=== PATIENT | male | born 1975 | race Caucasian/White ===

== ENCOUNTER → 2018-05-01 07:38 | Outpatient (CLI) | payer BC, SELFPAY ==
--- NOTE | 2018-05-01 08:00 | US_ITS ---
US abdomen limited History:Abdominal pain and belching Ordering Physician:Harmony Cook Patient Age: 43 years Comparison:None Findings: Pancreas:Unremarkable. No obvious mass or abnormal fluid collection. No ductal dilatation Liver:There is diffuse fatty liver with increased echogenicity of the liver and poor through transmission of sound. Right Kidney:Unremarkable. Normal size and echogenicity. No hydronephrosis Gallbladder:The gallbladder is distended at 11 x 4 cm. No obvious stones are present. Sludge is present in the gallbladder. Common bile duct is normal at 5 mm. No gallbladder wall thickening, pericholecystic fluid, or biliary dilatation. Impression: 1. Fatty liver. 2. Mildly distended gallbladder with sludge
== END ==
PROVIDERS: Family Provider Family Medicine; PCP Family Medicine; Visit Provider Nurse Practitioner
DX: R10.84 Generalized abdominal pain (principal)
CPT/HCPCS: 76705

== ENCOUNTER → 2018-05-24 10:08 | Outpatient (CLI) | payer BC, SELFPAY ==
--- NOTE | 2018-05-24 10:11 | NM_ITS ---
NM hepatobiliary w pharm HISTORY: Abdominal pain and belching ITS.REASON: SLUDGE IN GALLBLADDER ORDERING PHYSICIAN: Yvan Hammond MD PATIENT AGE: 43 years COMPARISON: None DOSE: 8.60 MCI TC Choletec Injected into RT arm Fatty Meal Ensure FINDINGS: Homogeneous activity is present within the hepatic parenchyma. Activity is present in the gallbladder by 40 minutes. Activity is present in the small bowel by 30 minutes. The gallbladder ejection fraction is calculated to be 47% The patient did not report pain or other symptoms during the fatty meal. IMPRESSION: Unremarkable hepatobiliary scan and gallbladder ejection fraction. No evidence of common or cystic duct obstruction with normal gallbladder ejection fraction
== END ==
PROVIDERS: PCP Family Medicine; Visit Provider Family Medicine
DX: K82.8 Other specified diseases of gallbladder (principal)
CPT/HCPCS: 78227; A9537

== ENCOUNTER → 2019-09-20 08:36 | Outpatient (CLI) | payer BC, SELFPAY | PROVIDERS: PCP Family Medicine; Visit Provider Family Medicine | DX: G47.33 Obstructive sleep apnea (adult) (pediatric) (principal); R40.0 Somnolence; E66.9 Obesity, unspecified | CPT/HCPCS: G0399 ==

== ENCOUNTER → 2021-07-14 16:07 | Outpatient (CLI) | payer BC, SELFPAY | PROVIDERS: PCP Family Medicine; Visit Provider Nurse Practitioner | DX: Z20.822 Contact with and (suspected) exposure to COVID-19 (principal) | CPT/HCPCS: C9803; U0003; U0005 ==

== ENCOUNTER → 2021-07-26 15:22 | Outpatient (CLI) | payer BC, SELFPAY | PROVIDERS: Visit Provider Nurse Practitioner | DX: Z20.822 Contact with and (suspected) exposure to COVID-19 (principal) | CPT/HCPCS: C9803; U0003; U0005 ==

== ENCOUNTER → 2021-08-04 15:27 | Outpatient (CLI) | payer BC, SELFPAY | PROVIDERS: PCP Family Medicine; Visit Provider Urology | DX: Z01.812 Encounter for preprocedural laboratory examination (principal); Z11.52 Encounter for screening for COVID-19; Z30.2 Encounter for sterilization | CPT/HCPCS: C9803; U0003; U0005 ==

== ENCOUNTER 2021-08-06 08:22 | Day surgery (SDC) | payer BC, SELFPAY ==
[2021-08-03 14:26] VITALS: BMI 39.4
[2021-08-06 08:44] VITALS: BP 151/88; PULSE 77; RESP 18; TEMP 36.4; O2SAT 98
[2021-08-06 10:24] VITALS: BP 144/85; PULSE 73; RESP 18; TEMP 36.6; O2SAT 95
[2021-08-06 10:37] VITALS: BP 144/85; PULSE 73; RESP 18; O2SAT 95
--- NOTE | 2021-08-06 13:08 | HMH.OPNOTE ---
Date of procedure: 08/06/21 Pre-op Diagnosis:: Sterilization Post-op Diagnosis:: Same Procedure performed:: Vasectomy Surgeon:: Dave Dow MD Anesthesia: local Estimated blood loss (mL): 5 Clinical Note:: 46-year-old white male presents for vasectomy. Office visit has been performed previously to discussed the operative procedure complications and postoperative course. Operative findings:: Scrotal and testicular examination within normal limits. Vasectomy was performed without difficulty. Operative note:: Patient taken to the vasectomy suite after informed consent was obtained. On the stretcher he was prepped and draped in the standard surgical fashion. Scrotal and testicular examination were within normal limits. The left vas was found and brought anteriorly and local anesthetic placed into the midline raphae and in and around the left vas. Incision was then made in the midline raphae and the left vas was grasped with a tenaculum. It was brought through the incision and the basal sheath was incised. The vas proper was dissected away from its surrounding tissues and 1 clip was placed distally and 2 clips proximally. A 1 cm segment of the vas was excised and the basal lumen was cauterized. Hemostasis achieved in the left vas dropped back into the left hemiscrotum. The right vas was then brought up through the same incision and local anesthetic placed around the right vas and the identical procedure was performed as on the left side. The right vas was dropped back into the hemiscrotum and hemostasis achieved. A 2-0 chromic placed into the skin and a horizontal mattress fashion. Compression dressing applied. Patient tolerated well. Condition: stable Disposition: same day Specimens:: Past segments were not sent to pathology Complications:: None
[2022-04-07 10:57] LABS: POC Glucose,Bedside 158 (70-110)
== END 2021-08-06 10:37 | disposition home or self-care (01) ==
LOC: OUTP 08:23
PROVIDERS: PCP Family Medicine; Visit Provider Urology
PROC: (CPT 55250; principal; 2021-08-06 09:30)
DX: Z30.2 Encounter for sterilization (principal)
CPT/HCPCS: 55250; 82962

== ENCOUNTER → 2021-09-18 10:24 | Outpatient (CLI) | payer BC, SELFPAY ==
[2021-09-18 10:50] LABS: Basophils # 0.3 K/mm3 (0-0.2); Basophils % 3.8 % (0.1-2.0); Eosinophils # 0.2 K/mm3 (0.0-0.4); Eosinophils % 2.6 % (0.1-12.0); Hematocrit 51.5 % (42.0-52.0); Lymphocytes # 1.6 K/mm3 (0.7-4.5); Lymphocytes % 18.8 % (10-50); Mean Corpuscular Hemoglobin 29.6 pg (27.0-31.2); Mean Corpuscular Volume 89.9 fl (80-94); Mean Platelet Volume 8.9 fl (7.4-10.4); Monocytes # 0.4 K/mm3 (0.1-1.0); Monocytes % 5.2 % (1.7-9.3); Neutrophils # 5.8 K/mm3 (1.8-7.8); Neutrophils % 69.7 % (37.0-80.0); Platelet Count 276 K/mm3 (142-424); Red Blood Count 5.73 M/mm3 (4.60-6.20); Red Cell Distribution Width 14.1 % (11.5-17.5); White Blood Count 8.4 K/mm3 (4.8-10.8)
[2021-09-18 11:28] LABS: Anion Gap 13.6 mEq/L (5-15); Blood Urea Nitrogen 15 mg/dl (9-20); Calcium 9.2 mg/dl (8.4-10.2); Carbon Dioxide 29 mmol/L (22.0-30.0); Chloride 102 mmol/L (98-107); Estimated Glomerular Filt Rate 90 ml/min (>60); GFR (African American) 109 ML/MIN (>60); Glucose 112 mg/dl (74-100); Potassium 4.6 mmoL/L (3.5-5.1); Sodium 140 mmol/L (136-145)
== END ==
PROVIDERS: Visit Provider Otolaryngology
DX: Z01.812 Encounter for preprocedural laboratory examination (principal); Z11.52 Encounter for screening for COVID-19
CPT/HCPCS: 36415; 80048; 85025; C9803; U0003; U0005

== ENCOUNTER 2021-09-21 07:35 | Day surgery (SDC) | payer BC, SELFPAY ==
[2021-09-16 14:27] VITALS: BMI 39.0
[2021-09-21 08:26] VITALS: BP 153/85; PULSE 75; RESP 18; TEMP 36.4; O2SAT 98
--- NOTE | 2021-09-21 08:26 | ECG_ITS ---
APPROVED REPORT Exam: Resting ECG HR:71 bpm ECG Measurements Heart Rate 71 AXES MT 184 P -8 QRSd 92 QRS 54 QT 371 T 13 QTc 393 Conclusion SINUS RHYTHM NORMAL ECG UNCONFIRMED REPORT Electronically signed by : Yvan Archer MD 09/21/2021 14:03:14
[2021-09-21 10:09] VITALS: BP 142/75; PULSE 65; RESP 18; TEMP 36.6; O2SAT 98
[2021-09-21 10:25] VITALS: BP 142/75; PULSE 65; RESP 18; TEMP 36.6; O2SAT 98
--- NOTE | 2021-09-21 10:30 | HMH.OPNOTE ---
Date of procedure: 09/21/21 Pre-op Diagnosis:: Nasal skin lesion Post-op Diagnosis:: Nasal skin lesion Procedure performed:: Excision nasal skin lesion with multilayer closure 7 mm Surgeon:: Catrachito Diaz MD Anesthesia: local Estimated blood loss (mL): 0 Operative findings:: 7 mm nasal skin lesion consistent with nonpigmented nevus Operative note:: Patient was brought to the operating room and placed supine and then the skin lesion on his nasal dorsum was locally infiltrated with 1% lidocaine with epinephrine then a planned horizontal's incision was designed and then the nose prepped and draped in the usual sterile fashion and then an elliptical excision performed down to the underlying subcutaneous tissue and the skin lesion was sent for permanent section analysis. Hemostasis was established with bipolar cautery and then the wound closed in 2 layers with 5-0 Vicryl and 6-0 nylon. A sterile dressing was applied and the procedure concluded. All counts correct and blood loss was 0 Condition: stable Disposition: PACU Complications:: none
--- NOTE | 2021-09-21 11:23 | HMH.OPNOTE ---
Date of procedure: 09/21/21 Pre-op Diagnosis:: Chronic serous otitis media ,nasopharynx mass Post-op Diagnosis:: Chronic serous otitis media, nasopharynx mass Procedure performed:: Bilateral tympanostomy and tube placement, adenoidectomy Surgeon:: Catrachito Diaz MD MIXING TANK OPERATOR:: Sam Nunn Anesthesia: GETA Estimated blood loss (mL): 25 Operative findings:: Mucoid middle ear effusion bilaterally, nasopharynx mass looked like benign adenoid hypertrophy Operative note:: The patient was brought to the operating room and after adequate general anesthesia the ears were draped in the usual sterile fashion and operating microscope employed to visualize tympanic membranes anterior inferior quadrant tympanostomies were made and suction employed to clear the middle ear space effusion and this was done bilaterally and then Zeng T tubes placed bilaterally and Ciprodex drops applied. The mouth was then draped in the usual sterile fashion and a McIvor mouthgag placed. The soft palate was inspected and no anatomic abnormalities were seen. The soft palate was retracted and the nasopharynx was visualized with a mirror. The soft tissue mass was consistent with adenoid hypertrophy. Adenoidectomy was performed using a microdebrider and then hemostasis established with suction Bovie and the procedure concluded. All counts correct and blood loss was less than 25 mL and patient was sent recovery in stable condition Condition: stable Disposition: PACU Complications:: none
[2022-04-07 10:57] LABS: POC Glucose,Bedside 119 (70-110)
== END 2021-09-21 10:25 | disposition home or self-care (01) ==
LOC: OR 07:37
PROVIDERS: PCP Family Medicine; Visit Provider Otolaryngology
PROC: (CPT 11106; principal; 2021-09-21 09:00)
DX: D23.39 Other benign neoplasm of skin of other parts of face (principal); E11.9 Type 2 diabetes mellitus without complications; Z79.890 Hormone replacement therapy; Z79.84 Long term (current) use of oral hypoglycemic drugs; Z79.4 Long term (current) use of insulin
CPT/HCPCS: 11106; 82962; 93005

== ENCOUNTER 2023-11-07 16:10 | Outpatient (CLI) | payer BC, SELFPAY ==
--- NOTE | 2023-11-07 16:14 | XR_ITS ---
FINAL REPORT CLINICAL HISTORY: Foot Pain FINDINGS: Three views show no evidence of acute displaced fracture or dislocation of the visualized bony architecture. The joint spaces appear normal. IMPRESSION: Unremarkable exam. Reviewed, Interpreted and Dictated by Morenita Garza MD Transcribed by Yarely Herrera Authenticated and . [facility]
--- NOTE | 2023-11-07 16:14 | XR_ITS ---
FINAL REPORT CLINICAL HISTORY: Foot Pain FINDINGS: Three views show no evidence of acute displaced fracture or dislocation of the visualized bony architecture. The joint spaces appear normal. IMPRESSION: Unremarkable exam. Reviewed, Interpreted and Dictated by Morenita Garza MD Transcribed by Yarely Herrera Authenticated and [facility]
== END 2023-11-07 23:59 | disposition home or self-care (01) ==
LOC: RAD 16:11
PROVIDERS: PCP Family Medicine; Visit Provider Podiatrist
DX: M79.671 Pain in right foot (principal); M79.672 Pain in left foot
CPT/HCPCS: 73630

== ENCOUNTER 2024-03-20 15:00 | Outpatient (RCR) | payer BC, SELFPAY ==
--- NOTE | 2024-02-09 12:41 | HMH.PTOPEV ---
PT Outpatient Evaluation Rehab PT Outpatient Evaluation Start: 02/09/24 12:24 Freq: Status: Active Protocol: Document 02/09/24 12:25 ANA PAULA (Rec: 02/09/24 12:41 ANA PAULA [id number]) E-signed By Jayden Love, PT Outpatient Therapy Subjective History Subjective History Patient is a 48 year old male presenting to outpatient PT with reports of R foot/ankle pain of insidious onset starting approx 7 months ago. Symptoms consistent with R PF /PTT/distal achilles tendonitis. Patient is currently using custom orthotics for B arch support. Comorbidities include hx of diabetes and umbilical hernia. New diagnosis of cancer in past 12 No months? Chief Complaint Pain,Stiff Symptom Type Dull,Shooting Symptoms Aggravated By Standing,Walking Prior Functional Limitations None Current Functional Limitations Housework,Walking,Stairs, Balance Symptom Description Intermittent Level of pain today (0-10) 3 Pain scale - at its worst (0-10) 9 Ankle/Foot Eval Gait Observation General Gait Pattern Observation Antalgic Gait,Decrease Stride Lngth (R) Palpation Tenderness right Ankle/Foot Palpation Findings Tenderness Ankle/Foot Palpation Overall Comment mid/distal posterior tibialis, distal achilles, calcaneus 3/ 4 ROM Ankle/Foot Dorsiflexion w/Knee Extended 12 Active Range Motion (degrees) Ankle/Foot Plantar Flexion Active Range WNL of Motion (degrees) Ankle/Foot Eversion Active Range of 22 Motion (degrees) Ankle/Foot Inversion Active Range of 29 Motion (degrees) Great Toe ROM Reason Not Measured Within Functional Limits Special Tests Talar Tilt Test Negative Right Foot Interdigital Neuroma Test Negative Right Neuro tests normal sensation to monofilament Yes Lower Extremity Functional Index Activities Today, do you or would you have any difficulty at all with: a.Any of your usual work, housework or Quite a bit of difficulty school activities b. Your usual hobbies, recreational or Moderate difficulty sporting activities c. Getting into or out of the bath No difficulty d. Walking between rooms No difficulty e. Putting on your shoes or socks No difficulty f. Squatting A little bit of difficulty g. Lifting an object, like a bag of No difficulty groceries from the floor h. Performing light activities around No difficulty your home i. Performing heavy activities around No difficulty your home j. Getting into or out of a car A little bit of difficulty k. Walking 2 blocks No difficulty l. Walking a mile Moderate difficulty m. Going up or down 10 stairs (about 1 Quite a bit of difficulty flight of stairs) n. Standing for 1 hour No difficulty o. Sitting for 1 hour Moderate difficulty p. Running on even ground Extreme difficulty or unable to perform activity q. Running on uneven ground Extreme difficulty or unable to perform activity r. Making sharp turns while running fast Extreme difficulty or unable to perform activity s. Hopping Extreme difficulty or unable to perform activity t. Rolling over in bed No difficulty LEFI Score Lower Extremity Functional Index Score 50 Outpatient Therapy Assessment Impairments Problems/Impairmments Palpation Tenderness,Impaired Range of Motion,Impaired Gait Pattern,Impaired Walking, Impaired Standing,Impaired Household Care,Impaired Stair Climbing,Impaired Incline Stepping,Impaired Recreational Activities,Impaired Work Activities,Subjective C/O Pain Prognosis Rehab Potential Good Clinical Impression Consistent with Diagnosis Yes Short Term Goals Number of Weeks 2 Decrease Subjective C/O Pain Yes: 11/16 at worst Patient to be Ind w/ HEP Yes Shoe Sprayer Goals Number of Weeks 4-6 Decreased Palpation Tenderness Yes: 07/13 Increase Range of Motion Yes: WNL all planes Increase Ability to Walk Yes: 1 hr without difficulty Increase Ability to Stand Yes: Improve Ability For Household Care Yes Improve Ability to Climb Stairs Yes: 1 flight up/down without difficulty Improve Tolerance to Work Activities Yes Decrease Subjective C/O Pain Yes: 08/19 at worst Outpatient Therapy Plan of Care Treatment Plan May Include Therapeutic Exercise Including Home Yes Exercise Program Manual Therapy Techniques Yes Neuromuscular Re-education Yes Therapeutic Activities to Return to Yes Previous Functional/Work Level Gait Training Yes ADL/Self Care Education Yes Mechanical Traction Yes Dry Needling Yes Thermal Modalities Yes Electrical Stimulation Yes Ultrasound/Phonophoresis Yes Iontophoresis Yes Orthotics/Bracing/Splinting Yes Vasopneumatic Compression Pump Yes Massage Yes Eval/Re-Eval Yes Frequency Times per week 2 Duration Number of Weeks 4-6 Addendums This patient is a candidate for social No or vocational rehab? Patient/Guardian verbally acknowledges Yes understanding of treatment program and consents to further treatment? Patient/Guardian verbally acknowledges Yes understanding of diagnosis, prognosis and goals for treatment? Eval Complexity PT Charges 18714 - Moderate Complexity Shoulder/Elbow Eval Shoulder Objective Measurements Elbow Objective Measurements PHYSICIAN CERTIFICATION: I certify the specified therapy services for Eliecer Felix are required, authorized, and reviewed every 30 days.
--- NOTE | 2024-03-14 14:16 | HMH.RHREAS ---
Rehab Reassessment Rehab OP Re-assessment Start: 02/09/24 12:24 Freq: Status: Active Protocol: Document 03/14/24 13:46 ANA PAULA (Rec: 03/14/24 14:16 ANA PAULA [id number]) E-signed By Jayden Love PT Lower Extremity Functional Index Activities Today, do you or would you have any difficulty at all with: a.Any of your usual work, housework or A little bit of difficulty school activities b. Your usual hobbies, recreational or A little bit of difficulty sporting activities c. Getting into or out of the bath No difficulty d. Walking between rooms No difficulty e. Putting on your shoes or socks No difficulty f. Squatting No difficulty g. Lifting an object, like a bag of No difficulty groceries from the floor h. Performing light activities around No difficulty your home i. Performing heavy activities around A little bit of difficulty your home j. Getting into or out of a car No difficulty k. Walking 2 blocks Moderate difficulty l. Walking a mile Moderate difficulty m. Going up or down 10 stairs (about 1 No difficulty flight of stairs) n. Standing for 1 hour A little bit of difficulty o. Sitting for 1 hour No difficulty p. Running on even ground Moderate difficulty q. Running on uneven ground Moderate difficulty r. Making sharp turns while running fast Moderate difficulty s. Hopping Moderate difficulty t. Rolling over in bed No difficulty LEFI Score Lower Extremity Functional Index Score 64 Rehab Re-assessment Subjective Subjective Patient reports 60% improvement since start of care. Objective Objective Notes AROM: WFL MMT: WFL Neuro: WFL Pain: 1/10 currently; 2/10 at worst TTP: calcaneal tubercle 1/4 Assessment Progress Assessment Progressing as Expected Assessment Notes Patient continues to experience functional limitations with prolonged standing/ambulatory activities . AROM and MMT WNL as noted. Patient goals met STG's Goals Not Met LTG's Revised Goals NA Plan Plan Continue with current POC. Frequency of Therapy 2x/week Duration of therapy 4 weeks Time and Billing Re-Eval Time 14 Re-Eval Billing Units 1 PHYSICIAN CERTIFICATION: I certify the specified therapy services for Eliecer Felix are required, authorized, and reviewed every 30 days.
== END 2024-03-20 15:05 | disposition home or self-care (01) ==
LOC: PT 15:00
PROVIDERS: Visit Provider Podiatrist
DX: M72.2 Plantar fascial fibromatosis (principal)
CPT/HCPCS: 97014; 97033; 97035; 97110; 97140; 97163; 97164; 97530; G0283

== ENCOUNTER 2024-07-31 14:03 | Outpatient (POV) | payer BC, SELFPAY ==
[2024-07-31 15:23] VITALS: BP 150/84; PULSE 80; RESP 18; O2SAT 98; BMI 40.4
--- NOTE | 2024-07-31 15:23 | A.OFFVIS_ITS ---
HPI Data of Consult Patient: new to practice Consult date: 07/31/24 Requesting Physician: Kassandra Rivera APRN Primary Care Provider: Yvan Hammond MD Consult Narrative Reason for consult: Neck pain History of present illness: Mr. Felix is a 49 year old male who presents today as a new patient. He is a referral from Dr. Ramirez's office. Today he rates his pain a 7 out of 10. Patient states that he has been experiencing chronic neck pain for longer than 6 months unrelated to any specific injury or trauma. Patient states that he does work at [employer] and that that may be playing a role in some of his worsening pain. He describes it as a throbbing sensation that is constant. He states that he has a lot of difficulty turning his head [id number] or up and down. He does state when he turns his head he feels a buzzing shocklike sensation that will occasionally send shooting pain into his right shoulder. He also does make mention that he has chronic headaches due to this. He has tried oral medications such as Tylenol and ibuprofen along with heat and ice and topicals with minimal improvement. Patient does state that Dr. Ramirez was not recommending cervical intervention at this time however was recommending injection therapy to see about additional improvement. Patient denies any prior back surgery or injection history such as epidurals or medial branch blocks. He does state that he did have an orthopedic doctor give him an injection and it did help some. He states that he has started physical therapy however has not really seen improvement just yet. His Fidencio has been reviewed and is appropriate. CC: Kassandra Rivera APRN [facility] Disclaimer: The information contained in this section may have been updated after the patient was seen, as this information can be updated by other users. 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 [employer] current occupational exposures/hazards: No caffeine: Yes Have you lived/traveled outside [place] in past 30 days?: No Contact w/someone who lives/traveled outside US past 30 days?: No Exposure to someone with infectious disease in past 14 days?: No Do you have a fever (greater than 100.4 F or 38 C)?: No Have you tested positive for COVID-19: No Exposed to someone with COVID-19 in past 14 days?: No Do you have a sore throat?: No Do you have a cough?: No Do you have any weakness?: No Do you have any diarrhea?: No Are you experiencing any unusual bleeding?: No Do you have any muscle aches/pain?: No Do you have any abdominal pain?: No Are you experiencing loss of taste or smell?: No Review of Systems Review of Systems Review of systems:: pertinent systems reviewed and negative unless documented below Review of systems (narrative): Review of Systems: General: No recent weight changes, no fever, no sleep disturbances Respiratory: No cough, no shortness of air, no recurring pulmonary infections Cardiovascular/peripheral vascular: No chest pain, no palpitations, no edema, no shortness of breath Gastrointestinal: No new onset incontinence, normal bowel movements reported Genitourinary: No new onset incontinence Musculoskeletal: Neck pain Psychiatric: [Normal mood/affect] Neurological: [Denies weakness in extremities], [denies balance issues] Meds Home Medications and Allergies Home Medications ?Medication ?Instructions ?Recorded ?Confirmed ?Type omeprazole 40 mg capsule,delayed 40 mg PO DAILY Reflux/Acid reflux 04/06/21 07/23/24 History release diclofenac sodium 1 % topical gel 4 g topical QID PRN pain 30 days 11/07/23 07/23/24 Rx (Voltaren Arthritis Pain) #100 grams testosterone cypionate 200 mg/mL mg SQ 11/07/23 07/23/24 History intramuscular oil sertraline 50 mg tablet mg PO DAILY 12/05/23 07/23/24 History tamsulosin 0.4 mg capsule mg PO 12/05/23 07/23/24 History tirzepatide 5 mg/0.5 mL mg SQ 05/21/24 07/23/24 History subcutaneous pen injector (Janet) meloxicam 7.5 mg tablet See Rx Instructions .Route 07/23/24 07/23/24 Rx .COMPLEX #30 tabs New Prescriptions to Start Prescriptions: Allergies Allergy/AdvReac Type Severity Reaction Status Date / Time No Known Allergies Allergy Verified 07/23/24 13:46 Objective Narrative: Physical Exam: General: Alert and oriented x3, no acute distress, pleasant and cooperative Lungs: Respirations even and unlabored, symmetrical chest expansion Eyes: PERRL Musculoskeletal: Flexion and extension of cervical [spine] somewhat guarded secondary to pain, [antalgic gait noted] positive Kemps test Neurological: Speech clear, no gross sensory deficit Additional findings Additional findings: MRI without contrast of cervical spine June 26, 2024 Impression: Degenerative changes of the cervical spine as detailed above level by level. Several disc osteophyte complex formation is contributing to canal and foraminal narrowing. There are degenerative endplate changes which have a chronic appearance with questionable remote fracture deformity of the inferior endplate of C6. There is acute bone edema along the inferior endplate of C5 and superior endplate of C6 suggest ongoing bony endplate remodeling/microtrabecular type fracture and component. Correlation with prior injury is recommended. Correlation with any prior imaging is also recommended if available. Assessment and Plan *Assessment and plan (1) Cervical spondylosis: Status: Acute Category: Medical Code(s): M47.812 - Spondylosis without myelopathy or radiculopathy, cervical region (2) Neck pain: Status: Acute Category: Medical Code(s): M54.2 - Cervicalgia (3) Degenerative disc disease, cervical: Status: Acute Category: Medical Code(s): M50.30 - Other cervical disc degeneration, unspecified cervical region Plan Patient is experiencing worsening pain in his neck with very limited range of motion. Patient did have a positive Kemps test. I did discuss with the patient that I do believe he would benefit from a cervical medial branch block. Risk and benefits were discussed with the patient and he would like to proceed forward with this plan of care. Patient has tried and failed conservative therapy including oral medications, heat and ice, topicals, at home stretching exercise for longer than 12 weeks and is now in physical therapy with no additional changes as of yet. Patient will be ordered a compounded cream. Patient will be scheduled for his first diagnostic cervical medial branch block bilaterally C5-C6 and C6-C7 under fluoroscopy. If he does have significant relief we will proceed forward with a second diagnostic injection with the plan to proceed to the cervical RFA at a later date. Patient agrees with this plan of care. Patient has been instructed to contact the clinic with any concerns before the next appointment. Dr. Landis has reviewed this note and agrees with this plan of care. This note was dictated using voice recognition software and make contain errors or omissions. All injections are used with Lidocaine, Bupivacaine and Depo Medrol. Occasionally urine drug screen is needed to verify patient's compliance with our office pain contract. This is ordered based off specific treatments related to chronic pain with the potential to abuse certain medications.
== END 2024-07-31 23:59 | disposition home or self-care (01) ==
LOC: SC.PAIN 14:04
PROVIDERS: PCP Family Medicine; Visit Provider Nurse Practitioner Family
DX: M47.812 Spondylosis without myelopathy or radiculopathy, cervical region (principal); M50.30 Other cervical disc degeneration, unspecified cervical region; Z87.891 Personal history of nicotine dependence
CPT/HCPCS: 99212; G0463

== ENCOUNTER 2024-07-31 15:08 | Outpatient (CLI) | payer BC, SELFPAY ==
--- NOTE | 2024-07-31 15:08 | MR_ITS ---
PROCEDURE INFORMATION: Exam: MR Right Lower Extremity Joint Without Contrast; Ankle Exam date and time: 07/31/2024 3:55 PM Age: 49 years old Clinical indication: Pain; Ankle; Right; Additional info: Evaluate achilles/plantar fascia TECHNIQUE: Imaging protocol: Magnetic resonance imaging of the right lower extremity without contrast. Exam focused on the ankle. COMPARISON: CR XR FOOT WT BEARING RT 3V 11/07/2023 4:15 PM FINDINGS: Bones/joints: Unremarkable. No bone abnormalities. Articular cartilage is normal. No joint effusion. LIGAMENTS: Distal tibiofibular syndesmosis: Unremarkable. No tear. Anterior talofibular ligament: Unremarkable. No tear. Posterior talofibular ligament: Unremarkable. No tear. Calcaneofibular ligament: Unremarkable. No tear. Deltoid ligament complex: Unremarkable. No tear. TENDONS: Flexor tendons of foot: Unremarkable as visualized. Tibialis posterior tendon: Unremarkable as visualized. Peroneal tendons: Unremarkable as visualized. Extensor tendons of foot: Unremarkable as visualized. Tibialis anterior tendon: Unremarkable as visualized. Achilles tendon: Mildly increased T2 signal near the Achilles insertion with a small volume of adjacent fluid (image 38 series 9). Tarsal canal (Sinus tarsi): There is fluid within the sinus tarsus which may reflect an element of sinus tarsi syndrome. Tarsal tunnel: Unremarkable. Soft tissues: Unremarkable. Plantar fascia: There is mild thickening at the calcaneal attachment of the plantar fascia (image 19 series 6) which may reflect an element of plantar fasciitis. IMPRESSION: 1. 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 2. Thickening near the calcaneal attachment of the plantar fascia concerning for mild plantar fasciitis. 3. Increased fluid near the calcaneal insertion of the Achilles without significant tendon thickening or evidence for tear.
== END 2024-07-31 23:59 | disposition home or self-care (01) ==
LOC: RAD 15:08
PROVIDERS: PCP Family Medicine; Visit Provider Podiatrist
DX: M76.61 Achilles tendinitis, right leg (principal); M79.671 Pain in right foot; M72.2 Plantar fascial fibromatosis
CPT/HCPCS: 73721

== ENCOUNTER 2024-08-08 15:00 | Outpatient (RCR) | payer BC, SELFPAY | END 2024-08-08 23:59 | disposition home or self-care (01) | LOC: PT 15:00 | PROVIDERS: PCP Family Medicine; Visit Provider Neurological Surgery | DX: M54.12 Radiculopathy, cervical region (principal) | CPT/HCPCS: 97014; 97035; 97110; 97140; 97163; G0283 ==

== ENCOUNTER 2024-08-13 12:54 | Day surgery (SDC) | payer BC, SELFPAY ==
[2024-08-13 13:23] VITALS: BP 138/74; PULSE 76; RESP 16; O2SAT 97; BMI 40.0
[2024-08-13] MEDS: BUPIVACAINE 0.25% 10ML INJ 25 MG IJ (13:31)
[2024-08-13] MEDS: methylPREDNISolone ACETATE 80MG/ML VIAL 80 MG (13:31)
[2024-08-13] MEDS: LIDOCAINE 1% 5ML PF VIAL 5 ML (13:31)
[2024-08-13 13:32] VITALS: BP 129/80; PULSE 79; PULSE 81; RESP 18; O2SAT 96; O2SAT 98
--- NOTE | 2024-08-13 13:41 | P.PCN_ITS ---
Procedure Date: 08/13/24 Time: 13:30 Anesthesiologist:: Lisandro Herrera CRNA Complications:: None Pre-procedure Diagnosis:: Degenerative disc cervical spine multilevels. Cervical radiculopathy. Cervical spondylosis. Multilevel cervical facet arthropathy Post-procedure Diagnosis:: Same. Indications for Procedure:: Patient is a pleasant 49-year-old male who comes our clinic today for ROUND ONE of cervical medial branch blocks/facet injections bilateral C5-6, C6-7 level. Patient describes cervical neck pain as constant, dull, aching. Chronic headaches. Some radicular symptoms in the bilateral shoulders. He rates his pain 7/10. Procedure Details:: Informed consent was obtained and the risk and benefits of the procedure was explained to the patient. Patient was taken to the procedure room where noninvasive monitors were placed, including noninvasive blood pressure cuff as well as pulse oximeter. The area over the posterior cervical spine was cleansed using chlorhexidine as a cleansing solution. I anesthetized the skin and sub cutaneous tissues with 1% Lidocaine. I placed 25 -gauge spinal needles into the facet joint/ medial branches of C5-6, C6-7 bilaterally. Needle placement was confirmed with fluoroscopy. After confirmation of needle placement, each site was injected with 1 mL of 1% lidocaine and 0.25 % Marcaine and 10 mg of Depo- Medrol. A total of 20 mg of depo medrol was used for bilateral medial branch blocks of C5-6, C6-7 bilaterally. Patient tolerated the procedure without difficulty. There were no complications. Plan and Disposition:: Patient was discharged without incident.
[2024-08-13 13:45] VITALS: BP 130/80; PULSE 69; RESP 16; TEMP 36.6; O2SAT 99
--- NOTE | 2024-08-13 13:53 | P.PCN_ITS ---
Procedure Date: 08/13/24 Time: 13:45 Anesthesiologist:: Lisandro Herrera CRNA Complications:: None Pre-procedure Diagnosis:: Bilateral sacroiliitis, degenerative disc lumbar spine multilevels. Lumbar radiculopathy. Chronic low lumbar back pain. Posterior hip pain. Post-procedure Diagnosis:: Same Indications for Procedure:: Patient is a pleasant 49-year-old male who comes our clinic today for repeat sacroiliac joint injections of cortisone and local anesthetic.. Patient reports 90+ percent relief with his previous injections in the bilateral sacroiliac joints. Patient has also had several lumbar epidural steroid injections with some moderate relief in terms of his radicular symptoms. He rates his pain today 6/10. Procedure Details:: Procedure: Bilateral sacroiliac joint injections under fluoroscopy Informed consent was obtained and the risks and benefits of the procedure were explained to the patient.~ The patient was taken to the procedure room and noninvasive monitors were placed including a noninvasive blood pressure cuff and pulse oximeter.~ The patient was placed prone on the procedure table. Both hips were cleansed using Betadine as a cleansing solution. C-arm fluoroscopy was used to view the right sacroiliac joint.~ The skin and subcutaneous tissues were anesthetized using lidocaine 1.5% and a 25-gauge needle.~ After this, a 22-gauge spinal needle was inserted under fluoroscopic guidance into the inferior aspect of the right sacroiliac joint.~ Omnipaque dye was injected and good spread was seen throughout the joint.~ After this, approximately 5 mL of bupivacaine, 0.25% and Depo-Medrol, 40 mg was incrementally injected into the right sacroiliac joint. We then moved to the left sacroiliac joint.~ The skin and subcutaneous tissues were anesthetized using lidocaine 1.5% and a 25-gauge needle.~ After this, a 22- gauge spinal needle was inserted under fluoroscopic guidance into the inferior aspect of the left sacroiliac joint.~ Omnipaque dye was injected and good spread was seen throughout the joint. After this, approximately 5 mL of bupivacaine, 0.25% and Depo-Medrol, 40 mg was incrementally injected into the left sacroiliac joint.~ The patient tolerated the procedure well with no complications. The patient was observed in the Pain Clinic and then was discharged home neurologically intact. Plan and Disposition:: Patient was discharged without incident.
[2024-08-13] MEDS: IOPAMIDOL-200 (41%);10ML VIAL 5 ML IV (14:10)
== END 2024-08-13 13:45 | disposition home or self-care (01) ==
PROVIDERS: PCP Family Medicine; Visit Provider Nurse Anesthetist, Certified Registered
DX: M47.812 Spondylosis without myelopathy or radiculopathy, cervical region (principal); M50.30 Other cervical disc degeneration, unspecified cervical region; M46.1 Sacroiliitis, not elsewhere classified; M51.362 Other intervertebral disc degeneration, lumbar region with discogenic back pain and lower extremity pain; M25.559 Pain in unspecified hip; M54.50 Low back pain, unspecified; G89.29 Other chronic pain
CPT/HCPCS: 27096; 64490; 64491; G0260; J1010; Q9966

== ENCOUNTER 2024-08-29 08:53 | Outpatient (POV) | payer BC, SELFPAY ==
[2024-08-29 09:44] VITALS: BP 141/79; PULSE 76; RESP 18; O2SAT 97; BMI 39.7
--- NOTE | 2024-08-29 09:59 | EXP.PAIN.SOA ---
[facility] Disclaimer: The information contained in this section may have been updated after the patient was seen, as this information can be updated by other users. 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 Today he rates his pain a 5 out of 10. He denies any new trauma or injury. He does state that he had approximately 80% relief that did last at least 36 hours with no migraines and no headaches. He does state that it did take about a day before it eventually kick 10 following the injections itself. He does state that he feels like it is still helping some however is writing today more about 30% improvement. He states that instead of having migraines daily he has gone to about 2 a week. Patient does state he still has very limited range of motion in his neck and would like to proceed forward on the next step that we discussed at his last appointment. He was prescribed the compounded cream and states he does feel like that helps additionally. Patient states his insurance did not cover the lidocaine patches. His Fidencio has been reviewed and is appropriate. Review of Systems: General: No recent weight changes, no fever, no sleep disturbances Respiratory: No cough, no shortness of air, no recurring pulmonary infections Cardiovascular/peripheral vascular: No chest pain, no palpitations, no edema, no shortness of breath Gastrointestinal: No new onset incontinence, normal bowel movements reported Genitourinary: No new onset incontinence Musculoskeletal: Neck pain, headaches Psychiatric: [Normal mood/affect] Neurological: [Denies weakness in extremities], [denies balance issues] Pain at rest (0-10 scale): 5 Objective Objective:: Physical Exam: General: Alert and oriented x3, no acute distress, pleasant and cooperative Lungs: Respirations even and unlabored, symmetrical chest expansion Eyes: PERRL Musculoskeletal: Flexion and extension of cervical [spine] somewhat guarded secondary to pain, [antalgic gait noted] positive Kemps test Neurological: Speech clear, no gross sensory deficit Has patient had previous pain injection?: Yes Percent improvement in pain since last injection: 80% Conservative treatment options previously tried: Home exercise plan Length of treatment: Longer than 12 weeks Meds Home Medications and Allergies Home Medications ?Medication ?Instructions ?Recorded ?Confirmed ?Type omeprazole 40 mg capsule,delayed 40 mg PO DAILY Reflux/Acid reflux 04/06/21 08/29/24 History release diclofenac sodium 1 % topical gel 4 g topical QID PRN pain 30 days 11/07/23 08/29/24 Rx (Voltaren Arthritis Pain) #100 grams testosterone cypionate 200 mg/mL 200 mg SQ DIRECTED SUPPLIMENT 11/07/23 08/29/24 History intramuscular oil sertraline 50 mg tablet 50 mg PO DAILY MOOD 12/05/23 08/29/24 History tamsulosin 0.4 mg capsule 0.4 mg PO DAILY URINATION 12/05/23 08/29/24 History tirzepatide 5 mg/0.5 mL 5 mg SQ DIRECTED 05/21/24 08/29/24 History subcutaneous pen injector (Mounjaro) meloxicam 7.5 mg tablet See Rx Instructions .Route 07/23/24 08/29/24 Rx .COMPLEX #30 tabs lidocaine 5 % topical patch 1 patch topical DAILY #30 ea 08/16/24 08/29/24 Rx New Prescriptions to Start Prescriptions: Allergies Allergy/AdvReac Type Severity Reaction Status Date / Time No Known Allergies Allergy Verified 08/05/24 14:08 Assessment and Plan *Assessment and plan (1) Neck pain: Status: Acute Category: Medical Code(s): M54.2 - Cervicalgia (2) Cervical spondylosis: Status: Acute Category: Medical Code(s): M47.812 - Spondylosis without myelopathy or radiculopathy, cervical region (3) Degenerative disc disease, cervical: Status: Acute Category: Medical Code(s): M50.30 - Other cervical disc degeneration, unspecified cervical region Plan Patient did have a successful first cervical medial branch block and I did review with him regarding repeat diagnostic block. Risk and benefits were discussed with patient and he would like to proceed forward with this plan of care. Patient did have limited range of motion of his cervical spine during today's visit with a positive Kemps test. Patient was counseled if he does get significant improvement with his second diagnostic block we will proceed forward with the cervical RFA at a later date. Patient was counseled to to the location of the RFA that we would do 1 side at a time because it is frequently more painful in the neck region. Patient acknowledges understanding agrees with plan of care. Patient has continued at home stretching and exercise for longer than 12 weeks with no additional changes. Patient has also been evaluated by neurosurgery and was not a candidate for surgical intervention at that time. Patient has failed oral medications, heat and ice, topicals. We will schedule him for his second cervical medial branch block bilaterally C5-C6 and C6 or C7 under fluoroscopy. Patient is not on any blood thinners. Patient has been instructed to contact the clinic with any concerns before the next appointment. Dr. Landis has reviewed this note and agrees with this plan of care. This note was dictated using voice recognition software and make contain errors or omissions. All injections are used with Lidocaine, Bupivacaine and Depo Medrol. Occasionally urine drug screen is needed to verify patient's compliance with our office pain contract. This is ordered based off specific treatments related to chronic pain with the potential to abuse certain medications.
== END 2024-08-29 23:59 | disposition home or self-care (01) ==
LOC: SC.PAIN 08:54
PROVIDERS: PCP Family Medicine; Visit Provider Nurse Practitioner Family
DX: M47.812 Spondylosis without myelopathy or radiculopathy, cervical region (principal); M50.30 Other cervical disc degeneration, unspecified cervical region; Z87.891 Personal history of nicotine dependence
CPT/HCPCS: 99212; G0463

== ENCOUNTER 2024-09-06 15:00 | Outpatient (RCR) | payer BC, SELFPAY | END 2024-09-06 23:59 | disposition home or self-care (01) | LOC: PT 15:00 | PROVIDERS: PCP Family Medicine; Visit Provider Neurological Surgery | DX: M54.12 Radiculopathy, cervical region (principal) | CPT/HCPCS: 97014; 97035; 97110; G0283 ==

== ENCOUNTER 2024-09-24 11:40 | Day surgery (SDC) | payer BC, SELFPAY ==
[2024-09-24 11:47] VITALS: BP 158/89; PULSE 69; RESP 16; TEMP 37; O2SAT 96; BMI 39.0
[2024-09-24 12:19] VITALS: BP 144/79; PULSE 71; RESP 16; O2SAT 95
[2024-09-24] MEDS: IOPAMIDOL-200 (41%);10ML VIAL 5 ML IV (12:28)
[2024-09-24] MEDS: methylPREDNISolone ACETATE 80MG/ML VIAL 80 MG (12:51)
[2024-09-24] MEDS: BUPIVACAINE 0.25% 10ML INJ 25 MG IJ (12:52)
[2024-09-24] MEDS: LIDOCAINE 1% 5ML PF VIAL 5 ML (12:52)
[2024-09-24 12:54] VITALS: BP 122/74; PULSE 76; RESP 18; O2SAT 94
[2024-09-24 12:55] VITALS: BP 122/74; PULSE 76; RESP 18; O2SAT 94
--- NOTE | 2024-09-24 13:01 | P.PCN_ITS ---
Procedure Date: 09/24/24 Time: 11:40 Anesthesiologist:: Lisandro Herrera CRNA Complications:: None Pre-procedure Diagnosis:: Degenerative disc cervical spine multilevels. Cervical radiculopathy. Cervical facet arthropathy. Cervical spondylosis. Post-procedure Diagnosis:: Same. Indications for Procedure:: Patient is a very pleasant 49-year-old male who comes our clinic today for ROUND TWO of cervical medial branch blocks/facet injections at the bilateral C5-6, C6- 7 levels. Patient reports posterior cervical neck pain is constant, dull, aching. Patient reports intermittent headaches. Patient reports pain with cervical flexion, extension, left and right rotation. He reports responding very well to cervical medial branch blocks/facet injections same levels previously. He rates his pain today 10. Procedure Details:: Procedure Details:: Informed consent was obtained and the risk and benefits of the procedure was explained to the patient. Patient was taken to the procedure room where noninvasive monitors were placed, including noninvasive blood pressure cuff as well as pulse oximeter. The area over the posterior cervical spine was cleansed using chlorhexidine as a cleansing solution. I anesthetized the skin and subcutaneous tissues with 1% Lidocaine. I placed 25 -gauge spinal needles into the facet joint/ medial branches of C5-6, C6-7 bilaterally. Needle placement was confirmed with fluoroscopy. After confirmation of needle placement, each site was injected with 1 mL of 1% lidocaine and 0.25 % Marcaine and 10 mg of Depo- Medrol. A total of 20 mg of depo medrol was used for bilateral medial branch blocks of C5-6, C6-7 bilaterally. Patient tolerated the procedure without difficulty. There were no complications. Plan and Disposition:: Patient was discharged without incident.
== END 2024-09-24 12:19 | disposition home or self-care (01) ==
LOC: SC.PAINP 11:41
PROVIDERS: PCP Family Medicine; Visit Provider Nurse Anesthetist, Certified Registered
DX: M47.812 Spondylosis without myelopathy or radiculopathy, cervical region (principal); M50.30 Other cervical disc degeneration, unspecified cervical region
CPT/HCPCS: 64490; 64491; J1010; Q9966

== ENCOUNTER 2024-09-25 16:00 | Outpatient (RCR) | payer BC, SELFPAY | END 2024-09-25 23:59 | disposition home or self-care (01) | LOC: PT 16:00 | PROVIDERS: PCP Family Medicine; Visit Provider Family Medicine | DX: M54.12 Radiculopathy, cervical region (principal) | CPT/HCPCS: 97110; 97140 ==

== ENCOUNTER 2024-10-09 14:19 | Outpatient (POV) | payer BC, SELFPAY ==
--- NOTE | 2024-10-09 14:53 | EXP.PAIN.SOA ---
[facility] Disclaimer: The information contained in this section may have been updated after the patient was seen, as this information can be updated by other users. 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 Today he does rate his pain a 3 out of 10. He states the pain will get much worse as the day goes on or with increased activity. He does state that he had at least 80% improvement and felt like it worked wonderful for a good full week. He states that he noticed improvement in movement as well as headaches. He does however state that he is already starting to notice increased pain. He does state that the more movement he denies typically flares up the overall neck pain and does increase his headaches as well as migraines. He does state that just the other day he turned his head to the left side and immediately flared up the pain causing a severe migraine. Patient does state that he would like to proceed forward with the cervical radiofrequency ablation that we have already discussed. Patient has continued conservative treatment with no additional changes. Patient does state that he has now officially stopped his therapy because it was just making his symptoms worse. His Fidencio has been reviewed and is appropriate. Review of Systems: General: No recent weight changes, no fever, no sleep disturbances Respiratory: No cough, no shortness of air, no recurring pulmonary infections Cardiovascular/peripheral vascular: No chest pain, no palpitations, no edema, no shortness of breath Gastrointestinal: No new onset incontinence, normal bowel movements reported Genitourinary: No new onset incontinence Musculoskeletal: Neck pain Psychiatric: [Normal mood/affect] Neurological: [Denies weakness in extremities], [denies balance issues] Pain at rest (0-10 scale): 5 Objective Objective:: Physical Exam: General: Alert and oriented x3, no acute distress, pleasant and cooperative Lungs: Respirations even and unlabored, symmetrical chest expansion Eyes: PERRL Musculoskeletal: Flexion and extension of cervical [spine] somewhat guarded secondary to pain, positive Kemps test Neurological: Speech clear, no gross sensory deficit Has patient had previous pain injection?: Yes Percent improvement in pain since last injection: 80% Conservative treatment options previously tried: Home exercise plan Length of treatment: Longer than 12 weeks Meds Home Medications and Allergies Home Medications ?Medication ?Instructions ?Recorded ?Confirmed ?Type omeprazole 40 mg capsule,delayed 40 mg PO DAILY Reflux/Acid reflux 04/06/21 09/24/24 History release testosterone cypionate 200 mg/mL 200 mg SQ DIRECTED SUPPLIMENT 11/07/23 09/24/24 History intramuscular oil sertraline 50 mg tablet 50 mg PO DAILY MOOD 12/05/23 09/24/24 History tamsulosin 0.4 mg capsule 0.4 mg PO DAILY URINATION 12/05/23 09/24/24 History tirzepatide 5 mg/0.5 mL 5 mg SQ DIRECTED 05/21/24 09/24/24 History subcutaneous pen injector (Mounjaro) meloxicam 7.5 mg tablet See Rx Instructions .Route 07/23/24 09/24/24 Rx .COMPLEX #30 tabs lidocaine 5 % topical patch 1 patch topical DAILY #30 ea 08/16/24 09/24/24 Rx diclofenac sodium 1 % topical gel 4 g topical QID PRN pain 30 days 09/30/24 Rx (Voltaren Arthritis Pain) #100 grams New Prescriptions to Start Prescriptions: Allergies Allergy/AdvReac Type Severity Reaction Status Date / Time No Known Allergies Allergy Verified 08/05/24 14:08 Assessment and Plan *Assessment and plan (1) Cervical spondylosis: Status: Acute Category: Medical Code(s): M47.812 - Spondylosis without myelopathy or radiculopathy, cervical region (2) Neck pain: Status: Acute Category: Medical Code(s): M54.2 - Cervicalgia Plan Patient has had 2 successful cervical medial branch blocks bilaterally of C5-C6 and 6 through C7. Patient has had more than 80% relief with each of these injections however they did vary on how long they lasted with his second 1 providing more improvement for a full week. I did review over the risk and benefits of the cervical RFA and he would like to proceed forward with this plan of care. Patient has tried and failed conservative therapy including oral medication, heat and ice, topicals, physical therapy, at home stretching exercise for longer than 12 weeks that was physician guided. I did discuss with the patient due to the increased pain with the radiofrequency ablation at the neck that we will plan on doing 1 side at a time. Patient does have worse pain on the left side and we will start with this side initially and proceed forward with the right side in future. Patient agrees with this plan of care. He will be scheduled for a cervical radiofrequency ablation left-sided C5-C6 and C6 or C7 under fluoroscopy. Patient has been instructed to contact the clinic with any concerns before the next appointment. Dr. Landis has reviewed this note and agrees with this plan of care. This note was dictated using voice recognition software and make contain errors or omissions. All injections are used with Lidocaine, Bupivacaine and Depo Medrol. Occasionally urine drug screen is needed to verify patient's compliance with our office pain contract. This is ordered based off specific treatments related to chronic pain with the potential to abuse certain medications.
[2024-10-09 15:44] VITALS: BP 128/79; PULSE 80; RESP 16; O2SAT 97; BMI 39.0
== END 2024-10-09 23:59 | disposition home or self-care (01) ==
LOC: SC.PAIN 14:20
PROVIDERS: PCP Family Medicine; Visit Provider Nurse Practitioner Family
DX: M47.812 Spondylosis without myelopathy or radiculopathy, cervical region (principal); M54.2 Cervicalgia; Z87.891 Personal history of nicotine dependence
CPT/HCPCS: 99212; G0463

== ENCOUNTER 2024-11-11 14:14 | Outpatient (POV) | payer BC, SELFPAY ==
[2024-11-11 14:42] VITALS: BP 127/77; PULSE 72; RESP 14; O2SAT 98; BMI 38.6
--- NOTE | 2024-11-11 14:58 | EXP.PAIN.SOA ---
[facility] Disclaimer: The information contained in this section may have been updated after the patient was seen, as this information can be updated by other users. 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 Today he rates his pain an 8 out of 10. Patient denies any new trauma or injury. He does state that he is having much worse neck pain that is interfering with his ability perform ADLs. Patient does state it is still that same pain he has been having and that it is worse with certain movements related to looking [id number] or up and down. Patient does still state that the left side is worse than the right side. Patient has had 2 diagnostic cervical medial branch blocks with both of them providing 80% relief. Patient did however only got about 36 hours with his first injection and 1 week with his second. Patient states that he did get a denial letter mentioning the types of medications as well as the temperature for the ablation. Patient does state that he does want to proceed forward with the cervical ablation as the injections for the first improvement he has had for some time. Patient states that he is dealt with this for a long time and that it is very frustrating. Patient does state that he is frustrated with the denial today. He is prescribed compounded cream. His Fidencio has been reviewed and is appropriate. Review of Systems: General: No recent weight changes, no fever, no sleep disturbances Respiratory: No cough, no shortness of air, no recurring pulmonary infections Cardiovascular/peripheral vascular: No chest pain, no palpitations, no edema, no shortness of breath Gastrointestinal: No new onset incontinence, normal bowel movements reported Genitourinary: No new onset incontinence Musculoskeletal: Neck pain Psychiatric: [Normal mood/affect] Neurological: [Denies weakness in extremities], [denies balance issues] Pain at rest (0-10 scale): 8 Objective Objective:: Physical Exam: General: Alert and oriented x3, no acute distress, pleasant and cooperative Lungs: Respirations even and unlabored, symmetrical chest expansion Eyes: PERRL Musculoskeletal: Flexion and extension of cervical [spine] somewhat guarded secondary to pain, [antalgic gait noted] positive Kemps test Neurological: Speech clear, no gross sensory deficit Has patient had previous pain injection?: No Conservative treatment options previously tried: Home exercise plan Length of treatment: Longer than 12 weeks Meds Home Medications and Allergies Home Medications ?Medication ?Instructions ?Recorded ?Confirmed ?Type omeprazole 40 mg capsule,delayed 40 mg PO DAILY Reflux/Acid reflux 04/06/21 11/11/24 History release testosterone cypionate 200 mg/mL 200 mg SQ DIRECTED SUPPLIMENT 11/07/23 11/11/24 History intramuscular oil sertraline 50 mg tablet 50 mg PO DAILY MOOD 12/05/23 11/11/24 History tamsulosin 0.4 mg capsule 0.4 mg PO DAILY URINATION 12/05/23 11/11/24 History tirzepatide 5 mg/0.5 mL 5 mg SQ DIRECTED 05/21/24 11/11/24 History subcutaneous pen injector (Mounjaro) meloxicam 7.5 mg tablet See Rx Instructions .Route 07/23/24 11/11/24 Rx .COMPLEX #30 tabs lidocaine 5 % topical patch 1 patch topical DAILY #30 ea 08/16/24 11/11/24 Rx diclofenac sodium 1 % topical gel 4 g topical QID PRN pain 30 days 09/30/24 11/11/24 Rx (Voltaren Arthritis Pain) #100 grams New Prescriptions to Start Prescriptions: Allergies Allergy/AdvReac Type Severity Reaction Status Date / Time No Known Allergies Allergy Verified 08/05/24 14:08 Assessment and Plan *Assessment and plan (1) Degenerative disc disease, cervical: Status: Acute Category: Medical Code(s): M50.30 - Other cervical disc degeneration, unspecified cervical region (2) Neck pain: Status: Acute Category: Medical Code(s): M54.2 - Cervicalgia (3) Cervical spondylosis: Status: Acute Category: Medical Code(s): M47.812 - Spondylosis without myelopathy or radiculopathy, cervical region Plan Patient has had 2 cervical medial branch blocks with 80% relief with each of those however the frequency of how long they lasted varied. Patient did have 36 hours with the first 1 and had 100% resolution of headaches/migraine during that timeframe. Patient had with his second injection with 1 week improvement of 80% to where he had very minimal pain in his neck rating a 1 out of 10. Patient is now experiencing much worse pain in the same location as he has been seen in our office with the left side being worse. Patient has had a positive Kemps test and would be an appropriate patient for the cervical radiofrequency ablation. This would be a 80 degrees nonpulsed thermal ablation. Patient has had chronic neck pain for longer than 6 months and has tried and failed conservative therapy including oral medication, heat and ice, topicals, physical therapy and at home stretching exercise for longer than 12 weeks that was physician guided. Patient has already been counseled that due to the increased pain of the cervical ablation that we would do 1 side at a time and since his left side is the worst we would start left-sided C5-C6 and C6-C7. Patient acknowledges understanding and agrees with this plan of care. Patient has gotten significant improved function with overall decreased pain from the 2 previous cervical blocks. Patient does have multilevel cervical spondylosis shown on his last imaging. Patient will be resubmitted for the cervical left-sided C5-C6, C6-C7 radiofrequency ablation under fluoroscopy. Patient has been instructed to contact the clinic with any concerns before the next appointment. Dr. Landis has reviewed this note and agrees with this plan of care. This note was dictated using voice recognition software and make contain errors or omissions. All injections are used with Lidocaine, Bupivacaine and dexamethasone. Occasionally urine drug screen is needed to verify patient's compliance with our office pain contract. This is ordered based off specific treatments related to chronic pain with the potential to abuse certain medications.
== END 2024-11-11 23:59 | disposition home or self-care (01) ==
LOC: SC.PAIN 14:15
PROVIDERS: PCP Family Medicine; Visit Provider Nurse Practitioner Family
DX: M50.30 Other cervical disc degeneration, unspecified cervical region (principal); M47.812 Spondylosis without myelopathy or radiculopathy, cervical region; Z87.891 Personal history of nicotine dependence; Z73.89 Other problems related to life management difficulty
CPT/HCPCS: 99212; G0463

== ENCOUNTER 2024-11-19 09:55 | Day surgery (SDC) | payer BC, SELFPAY ==
[2024-11-19 10:10] VITALS: BP 124/76; PULSE 77; RESP 16; TEMP 36.8; O2SAT 100; BMI 38.3
[2024-11-19] MEDS: LIDOCAINE 1% 5ML PF VIAL 5 ML (10:21)
[2024-11-19] MEDS: BUPIVACAINE 0.25% 10ML INJ 25 MG IJ (10:21)
[2024-11-19] MEDS: DEXAMETHASONE 10MG/ML 1ML VIAL 10 MG (10:21)
[2024-11-19 10:22] VITALS: BP 143/77; PULSE 73; RESP 18; O2SAT 96
[2024-11-19 10:25] VITALS: BP 143/77; PULSE 73; RESP 18; O2SAT 96
[2024-11-19] MEDS: IOPAMIDOL-200 (41%);10ML VIAL 10 ML IV (10:33)
[2024-11-19 10:35] VITALS: BP 132/70; PULSE 67; RESP 16; O2SAT 97
--- NOTE | 2024-11-19 11:00 | P.PCN_ITS ---
Procedure Date: 11/19/24 Time: 09:55 Anesthesiologist:: Lisandro Herrera CRNA Complications:: None Pre-procedure Diagnosis:: Degenerative disc cervical spine multilevels. Cervical radiculopathy. Cervical spondylosis. Multilevel cervical facet arthropathy. Chronic headache. Post-procedure Diagnosis:: Same. Indications for Procedure:: Patient is a very pleasant 49-year-old male who comes our clinic today for a left C5-6, C6-7 radiofrequency ablation of the cervical spine. Patient descri bes posterior cervical neck pain as left radiating down to the left trap. He also reports history of multiple migraines per week. However, he reports following 2 rounds of cervical facet blocks/medial branch block at the left C5- 6, C6-7 level his migraines have decreased significantly. He rates his pain 4/10. Procedure Details:: Informed consent was obtained and the risk and benefits of the procedure was explained to the patient. Patient was placed prone on the procedure table. The patient was prepped and draped in sterile fashion. C-arm fluoroscopy was used to view the lumbar spine. The skin and subcutaneous tissues were anesthetized using lidocaine. I placed 20-gauge RF needles into the facet joints of C5- C6 and C6-C7 levels on the left side. We underwent sensory stimulation. There is good sensory stimulation at 0.8 V. We underwent motor stimulation. There is no motor stimulation at 2.5 V. We then anesthetized these levels with lidocaine and Depo-Medrol. I used a total of 40 mg Depo-Medrol for both levels. I then burned both levels of C5-C6 and C6-C7 facet joint/medial branches on the left side for 4 minutes at 80 ?C. Patient tolerated the procedure well with no complication. Plan and Disposition:: Patient was discharged without incident.
== END 2024-11-19 10:35 | disposition home or self-care (01) ==
PROVIDERS: PCP Family Medicine; Visit Provider Nurse Anesthetist, Certified Registered
DX: M47.812 Spondylosis without myelopathy or radiculopathy, cervical region (principal); M50.10 Cervical disc disorder with radiculopathy, unspecified cervical region; R51.9 Headache, unspecified; G89.29 Other chronic pain
CPT/HCPCS: 64633; 64634; J1100; Q9966

== ENCOUNTER 2024-12-10 14:43 | Outpatient (POV) | payer BC, SELFPAY ==
[2024-12-10 15:04] VITALS: BP 128/69; PULSE 81; RESP 14; O2SAT 97; BMI 38.0
--- NOTE | 2024-12-10 15:31 | EXP.PAIN.SOA ---
[facility] Disclaimer: The information contained in this section may have been updated after the patient was seen, as this information can be updated by other users. 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 Patient rates his pain in that area 2 out of 10. He states that he has had at least 95% improvement following this procedure and feels like it is still working wonderful. He states he has had absolutely no migraines since having this. Patient is still having pain along the right side. He denies any new changes. He states he does still have stiffness and limited range of motion going to the right. Patient does state that he would like to proceed forward with the RFA on that side. His Fidencio has been reviewed and is appropriate. He is prescribed compounded cream from our office. Review of Systems: General: No recent weight changes, no fever, no sleep disturbances Respiratory: No cough, no shortness of air, no recurring pulmonary infections Cardiovascular/peripheral vascular: No chest pain, no palpitations, no edema, no shortness of breath Gastrointestinal: No new onset incontinence, normal bowel movements reported Genitourinary: No new onset incontinence Musculoskeletal: Right-sided neck pain Psychiatric: [Normal mood/affect] Neurological: [Denies weakness in extremities], [denies balance issues] Pain at rest (0-10 scale): 5 Objective Objective:: Physical Exam: General: Alert and oriented x3, no acute distress, pleasant and cooperative Lungs: Respirations even and unlabored, symmetrical chest expansion Eyes: PERRL Musculoskeletal: Flexion and extension of cervical [spine] somewhat guarded secondary to pain, right sided Kemps test Neurological: Speech clear, no gross sensory deficit Has patient had previous pain injection?: Yes Percent improvement in pain since last injection: 95% Conservative treatment options previously tried: Home exercise plan Length of treatment: Longer than 12 weeks Meds Home Medications and Allergies Home Medications ?Medication ?Instructions ?Recorded ?Confirmed ?Type omeprazole 40 mg capsule,delayed 40 mg PO DAILY Reflux/Acid reflux 04/06/21 12/10/24 History release testosterone cypionate 200 mg/mL 200 mg SQ DIRECTED SUPPLIMENT 11/07/23 12/10/24 History intramuscular oil sertraline 50 mg tablet 50 mg PO DAILY MOOD 12/05/23 12/10/24 History tamsulosin 0.4 mg capsule 0.4 mg PO DAILY URINATION 12/05/23 12/10/24 History tirzepatide 5 mg/0.5 mL 5 mg SQ DIRECTED 05/21/24 12/10/24 History subcutaneous pen injector (Miriamro) meloxicam 7.5 mg tablet See Rx Instructions .Route 07/23/24 12/10/24 Rx .COMPLEX #30 tabs lidocaine 5 % topical patch 1 patch topical DAILY #30 ea 08/16/24 12/10/24 Rx diclofenac sodium 1 % topical gel 4 g topical QID PRN pain 30 days 09/30/24 12/10/24 Rx (Voltaren Arthritis Pain) #100 grams New Prescriptions to Start Prescriptions: Allergies Allergy/AdvReac Type Severity Reaction Status Date / Time No Known Allergies Allergy Verified 08/05/24 14:08 Assessment and Plan *Assessment and plan (1) Degenerative disc disease, cervical: Status: Acute Category: Medical Code(s): M50.30 - Other cervical disc degeneration, unspecified cervical region (2) Cervical spondylosis: Status: Acute Category: Medical Code(s): M47.812 - Spondylosis without myelopathy or radiculopathy, cervical region Plan Patient has had significant improvement along the left side of his neck following his RFA on that side. I did review over risk and benefits of proceeding forward with the RFA on the right side and he would like to proceed forward with this plan of care. Patient does still have limited range of motion to the right with a positive Kemps. Patient has had 2 successful cervical medial branch blocks with more than 80% relief. Patient will be submitted for the right C5-C6 C6-C7 radiofrequency ablation of the cervical spine under fluoroscopy. Patient has tried and failed conservative therapy including oral medication, heat and ice, topicals, physical therapy, at home stretching exercise for longer than 12 weeks. Patient has also had chronic neck pain for longer than 6 months. This will be a thermal burn at 80 ?C nonpulsed Patient has been instructed to contact the clinic with any concerns before the next appointment. Dr. Landis has reviewed this note and agrees with this plan of care. This note was dictated using voice recognition software and make contain errors or omissions. All injections are used with Lidocaine, Bupivacaine and dexamethasone. Occasionally urine drug screen is needed to verify patient's compliance with our office pain contract. This is ordered based off specific treatments related to chronic pain with the potential to abuse certain medications.
== END 2024-12-10 23:59 | disposition home or self-care (01) ==
LOC: SC.PAIN 14:44
PROVIDERS: PCP Family Medicine; Visit Provider Nurse Practitioner Family
DX: M50.30 Other cervical disc degeneration, unspecified cervical region (principal); M47.812 Spondylosis without myelopathy or radiculopathy, cervical region
CPT/HCPCS: 99212; G0463

== ENCOUNTER 2024-12-31 14:14 | Outpatient (POV) | payer BC, SELFPAY ==
--- OUTSIDE RECORDS SUMMARY | 2024-12-31 14:17 | XMS_ITS | Clinical Summary ---
Author Organization [facility] Address [address] [place] [id number] Phone [email or web address] Providers Care Scallop Cutter Machine Name Role Phone Yvan Hammond MD Primary Care Provider [phone] Allergies No known active allergies Medications Farxiga 10 MG tablet TAKE 1 TABLET BY MOUTH ONCE DAILY FOR 30 DAYS 0 Active metFORMIN XR (GLUCOPHATE-XR ) 500 MG 24 hr tablet TAKE 1 TABLET BY MOUTH TWICE DAILY WITH EVENING MEAL FOR 30 DAYS 0 Active omeprazole (PriLOSEC) [address] capsule TAKE 1 CAPSULE BY MOUTH ONCE DAILY 30 MINUTES BEFORE MORNING MEAL 0 Active Accu-Chek Guide test strip USE 1 ONCE DAILY 0 Active Accu-Chek FastClix Lancets misc USE 1 TO CHECK GLUCOSE ONCE DAILY 0 Active Ozempic, 0.25 or 0.5 MG/DOSE, 2 MG/1.5ML solution pen-injector INJECT 0.5 MG SUBCUTANEOUSLY ONCE A WEEK 0 Active testosterone cypionate (DEPO-TESTOTER ONE) 100 MG/ML injection Inject as directed every 14 (fourteen) days. Active testosterone cypionate (DEPO-TESTOTER ONE) 200 MG/ML injection INJECT 0.5ML INTO THE APPROPRIATE MUSCLE DIRECTED BY DR EVERY 14 DAYS 2 Active phentermine (ADIPEX-P) 37.5 MG tablet TAKE 1/2 (ONE-HALF) TABLET BY MOUTH ONCE DAILY 2 Active omeprazole (PriLOSEC) [address] capsule Take 20 mg by mouth once daily as needed. Active Ozempic, 2 MG/DOSE, 8 MG/3ML solution pen-injector INJECT 2MG UNDER THE SKIN INTO THE APPROPRIATE AREA DRECTED ONCE A WEEK 2 Active Active Problems No known active problems Immunizations Immunization Administration Dates Next Due Covid-19 (Moderna [place], 12yrs+) (CVX-207) 2020,10/07/2020 Social History Tobacco Use Types Packs/Day Years Used Date Smoking Tobacco: Former Cigarettes Q uit: 2004 Smokeless Tobacco: Never Intimate Partner Violence Answer Date R ecorded Insults You Not on file 10/21/2020 Threatens You Not on file 10/21/2020 Screams at You Not on file 10/21/2020 Physically Hurt Not on file 10/21/2020 Intimate Partner Violence Score Not on file 10/21/2020 Depression Answer Date Recorded PHQ Total Score Not on file 01/08/2023 Stress Answer Date Recorded Stress in your Life Not on file 05/13/2024 Dealing with Stress 3 05/13/2024 Sex and Gender Information Value Date Recorded Sex Assigned at Not on file Legal Sex Male 9:32 AM CDT Gender Identity Not on file Sexual Orientation Not on file Last Filed Vital Signs Vital Sign Reading Time Taken Comments Blood Pressure 128/80 04/03/2024 9:27 AM EDT Pulse 94 04/03/2024 9:27 AM EDT Temperature 36.8 C (98.3 F) 04/03/2024 9:27 AM EDT Respiratory Rate 16 04/03/2024 9:27 AM EDT Oxygen Saturation 97% 01/03/2022 11:04 AM EDT Inhaled Oxygen Concentration - - Weight 137 kg (303 lb) 04/03/2024 9:27 AM EDT Height 180.3 cm (5' 11 ) 04/03/2024 9:27 AM EDT Body Mass Index 42.26 04/03/2024 9:27 AM EDT Plan of Treatment Health Maintenance Due Date Last Done Comments Dental Cleaning/Exam 1973 HIV Screening 1973 Hepatitis C Screening 1973 Annual Preventive Exam 1991 Hep B Infection Screening - Triple Screen 1991 Hepatitis B Immunization (1 of 3 - 19+ 3-dose series) 1992 Tetanus Diphtheria and Pertussis Immunization (1 - Tdap) 1992 Colorectal Cancer Screening 2003 Zoster Immunization (1 of 2) 2023 Covid-19 Immunization (3 - season) 2024 11/04/2020, 10/07/2020 Influenza Immunization (Season Ended) 2025 04/25/2022, 04/08/2020 HIB Immunization Aged Out No longer e ligible based on patient's age to complete this topic HPV Immunization Aged Out No longer e ligible based on patient's age to complete this topic Hepatitis A Immunization Aged Out No longer eligible based on patient's age to complete this topic Pneumococcal: Ped (0 to 5 Yrs) and At-Risk Member (6 to 64 Yrs) Aged Out No longer eligible b ased on patient's age to complete this topic Polio Immunization Aged Out No longer eligible based on patient's age to complete this topic Insurance JULI ADAMS [id number] OPT OUT NO COPAY NB Care Teams Scallop Cutter Machine Relationship Specialty Start Date End Date Yvan Hammond MD [address] [place] [address] KRISTOPHERCHIQUIS JULI [id number] PCP - General Personnel Director 11/08/21
[2024-12-31 14:29] VITALS: BP 119/78; PULSE 77; RESP 18; O2SAT 95; BMI 37.2
[2024-12-31] MEDS: IOPAMIDOL-200 (41%);10ML VIAL 6 ML IV (14:48)
[2024-12-31] MEDS: LIDOCAINE 1% 5ML PF VIAL 5 ML (14:54)
[2024-12-31] MEDS: BUPIVACAINE 0.25% 10ML INJ 25 MG IJ (14:54)
[2024-12-31] MEDS: DEXAMETHASONE 10MG/ML 1ML VIAL 10 MG (14:54)
[2024-12-31 14:55] VITALS: BP 143/80; PULSE 72; RESP 18; O2SAT 99
--- NOTE | 2024-12-31 14:58 | P.PCN_ITS ---
Procedure Date: 12/31/24 Time: 14:50 Anesthesiologist:: Lisandro Herrera CRNA Complications:: None Pre-procedure Diagnosis:: Degenerative disc cervical spine multilevels. Cervical radiculopathy. Cervical spondylosis. Multilevel cervical facet arthropathy. Chronic headaches. Post-procedure Diagnosis:: Same. Indications for Procedure:: Patient is a pleasant 49-year-old male who comes our clinic today for right cervical radiofrequency ablation at the C5-6, C6-7 level. Patient describes p osterior cervical neck pain as constant, dull, aching. He also describes some radicular symptoms into the shoulders. He reports responding well to previous medial branch blocks/facet injections at the same levels for 2 weeks. He rates his pain 7/10. Procedure Details:: Informed consent was obtained and the risk and benefits of the procedure was e xplained to the patient. Patient was placed prone on the procedure table. The patient was prepped and draped in sterile fashion. C-arm fluoroscopy was used to view the lumbar spine. The skin and subcutaneous tissues were anesthetized using lidocaine. I placed 20-gauge RF needles into the facet joints of C5- C6 and C6-C7 levels on the right side. We underwent sensory stimulation. There is good sensory stimulation at 0.8 V. We underwent motor stimulation. There is no motor stimulation at 2.5 V. We then anesthetized these levels with lidocaine and dexamethasone. I used a total of 5 mg of dexamethasone for both levels. I then burned both levels of C5-C6 and C6-C7 facet joint/medial branches on the right side for 4 minutes at 80 ?C. Patient tolerated the procedure well with no complication. Plan and Disposition:: Patient was discharged without incident.
[2024-12-31 15:00] VITALS: BP 133/71; PULSE 73; RESP 18; O2SAT 96
== END 2024-12-31 15:00 | disposition home or self-care (01) ==
PROVIDERS: PCP Family Medicine; Visit Provider Nurse Anesthetist, Certified Registered
DX: M47.22 Other spondylosis with radiculopathy, cervical region (principal); R51.9 Headache, unspecified
CPT/HCPCS: J1100; Q9966

== ENCOUNTER 2025-01-23 14:50 | Outpatient (POV) | payer BC, SELFPAY ==
--- OUTSIDE RECORDS SUMMARY | 2025-01-23 15:19 | XMS_ITS | Data Portability ---
Author Organization [facility] Aissatou jackman, CKS [facility] CLOS[facility] Address [address] [place] [address] Care Team Providers Care Parking Lot Spotter Name Role Phone LILA VEGA Primary Care Provider Assessment Encounter Date Assessment Date Assessment LastModified by Organization Details LastModified Time 07/24/2024 07/24/2024 MRI cervical spine. [facility]. 06/26/24. Images reviewed by Dr. Ramirez and myself. -C3-4 paracentral disc -C5-6 right disc protrusion -C6-[address] Ramirez discussed with Mr. Felix that his MRI does show some disc protrusions and straightening of the cervical spine, but no severe nerve compression. In the absence of radicular arm pain, she does not recommend surgery at this time. She discussed with him the option of seeing pain management and/or trying PT. He would like to try this and we will make a referral to pain management to discuss cervical injections and a referral for cervical PT. He understands to call the office if he has any new symptoms or concerns in the future. He retains his MRI disc. Seen by Dr. Ramirez and myself. [email or web address] Not available 07/24/2024 15:22:01 Plan of Treatment Reminders Order Date Submit Date Provider Last Modified By Organization Details Last Modified Time Details Appointments RECHECK 2024 08:10A M TIERA POWER MD Not available Not available Not available RECHECK 2024 03:00P M RUSS ORELLANA APRN Not available Not available Not available Lab None recorded . Referral None recorded . Procedures None recorded . Surgeries None recorded . Imaging None recorded . Medication Orders predniso ne 10 mg tablet [address] [facility] - [facility], [address], [place], [address], 01/23/2025 08:00:57 cefdinir 300 mg capsule [address] [facility] - [facility], [address], [place], [address], 01/23/2025 07:59:55 fluticas one propiona te 50 mcg/actu ation nasal spray,vazquez spension 2024 025 [facility] - [facility], [address], [place], [address], 01/13/2025 16:08:55 Patient TargetsNo targets recorded. Patient Instructions Encounter Date Encounter Id Patient Instructions Last Modified By Organization Details Last Modified Time 12/25/2023 [id number] 1. Audiometry obtained and results reviewed with patient 2. Advised to wear ear protection when exposed to loud noises to preserve hearing. 3. F/U in 12 months with audio [place] [facility] MD Sun Power [email or web address] Not available 12/25/2023 16:01:42 01/13/2025 [id number] 1. Audiometry obtained and results reviewed with patient 2. Advised to wear ear protection when exposed to loud noises to preserve hearing. 3. Rx - Cefdinir 300mg PO, 1 tablet BID for 10 days 4. Rx - Prednisone 10mg PO, take 4 tablets QD on days 1-2, then 3 tablets QD on days 3-4, then 2 tablets QD on days 5-6, and 1 tablet QD on days 7-8 5. NS rinse to each nostril BID 6. Rx - Fluticasone 50mcg nasal spray, 2 sprays each nostril BID 7. Wean off the Afrin nasal spray the next few days 8. F/U in 4 weeks. If symptoms persist and no improvement with medication trial, will order a sinus CT scan for further evaluation [facility] E[facility] MD Sun Yoder. Tono [email or web address] Not available 01/13/2025 16:08:37 Reason for Referral None Reported. Results Created Date Observation Date Name Description Value Unit Range Abnormal Flag Note LastModifiedBy Organization Detail LastModifiedTime 12/26/19 24 12/25/2023 audio gram No observ ation record ed. BARCODE Not Available 2023 11:17:11 07/29/19 25 07/29/2024 MRI, cervi esteban spine , w/o contr ast No observ ation record ed. BARCODE Not Available 2024 10:34:54 01/14/20 25 01/13/2025 audio gram No observ ation record ed. BARCODE Not Available 2024 16:31:32 Result Notes None recorded. Problems No Known Problems Procedures Surgical History Date Name Laterality Status Provider Name and Address Organization Details Recorded Time 5 Audiogram completed ABEL SAMUELS, AUD [address] [place], [address], [facility] 01/13/2025 15:38:34 4 Audiogram completed DILLAN LENNON, KRISTY, CCA-A [address] [place], [address], [facility] 12/25/2023 15:11:21 3 Tympanogram completed JESSIE ROSARIO, MS [address] [place], [address], [facility] 12/21/2022 15:45:41 3 Audiogram completed JESSIE ROSARIO, MS [address] [place], [address], [facility] 12/21/2022 15:45:40 vasectomy completed Melly Torres [facility] 12/21/2022 15:00:06 Other completed Melly Torres [facility] 12/21/2022 15:00:17 Imaging Results None recorded. Procedure Notes None recorded. Medical Equipment None Reported. Allergies No known drug allergies Medications Name Sig Start Date Stop Date Status Note LastModified by Organization Details LastModified Time losartan 50 mg tablet Take 1 tablet every day by oral route. active Not Available Not Available No t Available atorvastat in 80 mg tablet Take 1 tablet every day by oral route. active Not Available Not Available No t Available prednisone 10 mg tablet TAKE 4 TABLETS BY MOUTH EVERYDAY ON DAYS 1-2, THEN 3 TABS EVERYDAY ON DAYS 3-4, THEN 2 TABS EVERYDAY ON DAYS 5-6, THEN 1 TAB EVERYDAY ON DAYS 7-8 active no longer taking Not Available Not Available Not Available doxycyclin e hyclate 100 mg capsule TAKE 1 CAPSULE BY MOUTH TWICE DAILY FOR 10 DAYS active Not Available Not Available No t Available sertraline 100 mg tablet TAKE 1 TABLET BY MOUTH ONCE DAILY active Not Available Not Available No t Available meloxicam 7.5 mg tablet TAKE 1 TABLET BY MOUTH ONCE DAILY FOR PAIN active Not Available Not Available No t Available modafinil 200 mg tablet TAKE 1 TABLET BY MOUTH ONCE DAILY active Not Available Not Available No t Available tamsulosin 0.4 mg capsule TAKE 1 CAPSULE BY MOUTH ONCE DAILY active Not Available Not Available No t Available ropinirole 0.5 mg tablet TAKE 1 TABLET BY MOUTH EVERY DAY AT BEDTIME active Not Available Not Available No t Available omeprazole 20 mg capsule,de layed release TAKE 1 CAPSULE BY MOUTH ONCE DAILY active Not Available Not Available No t Available metoprolol succinate ER 25 mg tablet,ext ended release 24 hr Take 1 tablet every day by oral route. active Not Available Not Available No t Available testostero ne cypionate 200 mg/mL intramuscu lar oil INJECT 1ML INTO THE APPROPRIA TE AREA DIRECTED BY PRESCRIBE R EVERY 14 DAYS active Not Available Not Available No t Available methylpred nisolone 4 mg tablets in a dose pack TAKE BY MOUTH DIRECTED ON INSIDE OF PACKAGE FOR PAIN & SWELLING active Not Available Not Available No t Available cefdinir 300 mg capsule TAKE 1 CAPSULE BY MOUTH EVERY 12 HOURS FOR 10 DAYS active completed course Not Available Not Available Not Available fluticason e propionate 50 mcg/actuat ion nasal spray,susp ension USE 2 SPRAY(S) IN EACH NOSTRIL TWICE DAILY 15 MINUTES AFTER SALINE RINSE active Not Available Not Available No t Available sertraline 50 mg tablet TAKE 1 TABLET BY MOUTH ONCE DAILY active Not Available Not Available No t Available testostero ne active Not Available Not Available Not Available omeprazole active Not Available Not Av ailable Not Available diclofenac 1 % topical gel APPLY 4 GRAMS TOPICALLY FOUR TIMES A DAY NEEDED FOR PAIN. APPLY TO HEEL, ANKLE, AND/OR FOOT. FOR FOOT INCLUDE SOLE/TOES /TOP OF FOOT active Not Available Not Available No t Available ticagrelor 90 mg tablet Take 1 tablet twice a day by oral route. active Not Available Not Available No t Available OneTouch Verio test strips USE 1 STRIP TO CHECK GLUCOSE ONCE DAILY active Not Available Not Available No t Available Farxiga 5 mg tablet Take 1 tablet every day by oral route. active Not Available Not Available No t Available OneTouch Verio Flex Meter USE DIRECTED active Not Available Not Available No t Available OneTouch Delica Plus Lancet 33 gauge USE DIRECTED active Not Available Not Available No t Available Ozempic 1 mg/dose (4 mg/3 mL) subcutaneo us pen injector INJECT 1 MG SUBCUTANE OUSLY ONCE A WEEK active no longer taking Not Available Not Available Not Available Ozempic 2 mg/dose (8 mg/3 mL) subcutaneo us pen injector INJECT 2MG UNDER THE SKIN INTO THE APPROPRIA TE AREA DIRECTED ONE TIME PER WEEK active no longer taking Not Available Not Available Not Available Mounjaro 7.5 mg/0.5 mL subcutaneo us pen injector INJECT 1 SYRINGE SUBCUTANE OUSLY ONCE A WEEK active Not Available Not Available No t Available Mounjaro 5 mg/0.5 mL subcutaneo us pen injector INJECT 5 MG (0.5 ML) SUBCUTANE OUSLY INTO THE APPROPRIA TE AREA DIRECTED ONCE A WEEK active Not Available Not Available No t Available Mounjaro 15 mg/0.5 mL subcutaneo us pen injector INJECT 1 SYRINGE SUBCUTANE OUSLY ONCE A WEEK DIRECTED active Not Available Not Available No t Available Mounjaro 10 mg/0.5 mL subcutaneo us pen injector INJECT 10MG (0.5ML) UNDER THE SKIN INTO THE APPROPRIA TE AREA DIRECTED ONE TIME PER WEEK active Not Available Not Available No t Available Mounjaro 12.5 mg/0.5 mL subcutaneo us pen injector INJECT 12.5 MG (0.5 ML) UNDER THE SKIN INTO THE APPROPRIA TE AREA ONCE WEEKLY DIRECTED active Not Available Not Available No t Available Clenpiq 10 mg-3.5 gram-12 gram/175 mL oral solution TAKE DIRECTED active Not Available Not Available No t Available Vitals Date Recorded Body height Provider Name an d Address Organization Details Last Updated DateTime 07/24/2024 180.34 cm Antonieta Cohen [facility] 07/24/2024 15:04:03 Date Recorded Body height Body weight Body temperature Heart rate Respiratory rate Systolic And Diastolic Provider Name and Address Organization Details Last Updated DateTime 180.34 cm 706646. 34 g 98.4 [degF] 82 /min 20 /min 151/90 mm[Hg] Tracy Hsieh [facility] 4 15:05:50 Date Recorded Body height Body mass index (BMI) Body weight Body temperature Heart rate Systolic And Diastolic Provider Name and Address Organization Details Last Updated DateTime 180.34 cm 37.7 kg/m2 888105. 94 g 97.3 [degF] 87 /min 177/105 mm[Hg] Kimberly Barakat [facility] 15:14:11 Date Recorded Body height Body mass index (BMI) Body weight Heart rate Systolic And Diastolic Provider Name and Address Organization Details Last Updated DateTime 01/23/2025 180.34 cm 37.7 kg/m2 537869.9 4 g 74 /min 101/60 mm[Hg] Sana Hagen [facility] 01/23/2025 08:03:48 Social History Question Answer Notes LastModified by Organizat ion Details LastModified Time Tobacco Smoking Status [facility] 15:00:39 What Was The Date Of Your Most Recent Tobacco Screening? 01/23/2025 [email or web address] Information not available 01/23/2025 Sex: Male Functional Status Question Answer Note LastModified by Organization D etails LastModified Time What is your level of alcohol consumption? None [email or web address] Information not available 12/21/2022 Mental Status None recorded. Family History Relationship Description Onset Age of this Age Resolved Age Notes LastModified by Organization Details LastModified Time Mother Disorder of thyroid gland [email or web address] Not available 15:00:46 Mother Complication of anesthesia [email or web address] Not available 15:00:52 Medical History Condition Response TENS Unit for current problem Y Traction for current problem N Massage Therapy for current problem Y Other N Gout N Kidney Stones N Hyperthyroidism N Heart Arrhythmia N Emphysema N Narcotic Pain Medication for current pro blem N Esophagus/swallowing troubles Y COPD N Depression N Lung Disease N Hypothyroidism N Glaucoma N Injections for current problem N Anesthesia Complications Y Deep Vein Thrombosis N Anxiety Disorder N Arthritis N Hearing Loss Y Acid Reflux (GERD) Y Cancer N Stroke N Hoarseness N Alcohol Overuse/Alcohol Abuse N High Cholesterol N Snoring problems Y Liver Disease N Fibromyalgia N Headaches Y Dialysis N Kidney Disease N Allergies/Hayfever Y Heart Problems N Neuro-modulating Drugs for current probl em N Mental handicap N Ear or Hearing Problems Y Black Lung N Gallbladder Disease N Migraines Y Thyroid Problems N Steroid Pack for current problem N NSAID Use N Goiter N Osteoporosis/Osteopenia N Anemia N Immune System Disorder N Chest Pain N Stomach trouble N Ulcers N Heart Attack ([place]) N Mental Illness N Diabetes Y Rheumatic Fever N Bleeding Disorder N Tuberculosis N Genetic Disorder N AIDS/HIV N Chiropractor treatment for current probl em Y Kidney Failure N Hyperlipidemia N Ultrasound Treatment for current problem N Asthma N Epilepsy/Seizures N Sleep Apnea Y Thyroid Disorder N Sleep Disorder Y Hepatitis N Physical Therapy Treatments for current problem N Heart Disease N Pulmonary Embolism N Hypertension N Past Encounters Encounter ID Performer Location Encounter Start Date Encounter Closed Date Diagnosis/Indication Diagnosis SNOMED-CT Code Diagnosis ICD10 Code Diagnosis Note [id number] RUSS ORELLANA, CHILD DAYCARE WORKER [facility] [address] [place] [address] 12/21/2022 14:47:36 12/22/2022 04:57:33 Bilateral tinnitus 4177238588 102 H93.13 - secondary to SNHL Sensorineu ral hearing loss of bilateral ears 408111991 H90.3 - Audio 12/21/22: R>L slightly, moderate HF, A tymps Mass of neck 011491434 R 22.1 - 12/21/22: right lateral wall of thyroid gland against sternoclei domastoid muscle; oval, 2x2cm, tender [id number] JESSIE ROSARIO, MS [facility] [address] [place] [address] 12/21/2022 15:45:06 12/22/2022 04:43:28 Sensorineural hearing loss of bilateral ears 598680327 H90.3 [id number] RUSS ORELLANA APRN [facility] [address] [place] [address] 12/25/2023 14:58:50 12/26/2023 04:41:14 Bilateral tinnitus 4640672934 102 H93.13 - secondary to SNHL Sensorineu ral hearing loss of bilateral ears 987510720 H90.3 - Audio 12/21/22: R>L slightly, moderate HF, A tymps- Audio 12/25/23: stable Cervical lymphadenopathy 503045599 R59.0 - 12/21/22: right lateral wall of thyroid gland against sternoclei domastoid muscle; oval, 2x2cm, tender- Neck U/S 12/29/23: few scattered enlarged, benign nodes- 12/25/23: no change [id number] DILLAN BOWERS ER, AUD, CCA-A [facility] [address] [place] [address] 12/25/2023 15:10:21 12/26/2023 04:44:02 Sensorineural hearing loss of bilateral ears 940729436 H90.3 Bilateral tinnitus 43488 30605 102 H93.13 [id number] EVELIA SPENCE-Khadra [facility] [address] [place] [address] 07/24/2024 14:12:57 07/25/2024 05:07:14 Cervical spondylosis 044193811 M47.812 [id number] RUSS ORELLANA APRN [facility] [address] [place] [address] 01/13/2025 15:09:08 01/14/2025 04:25:59 Bilateral tinnitus 4437946778 102 H93.13 - secondary to SNHL Sensorineu ral hearing loss of bilateral ears 626786168 H90.3 Cervical lymphadenopathy 209935726 R59.0 - 12/21/22: right lateral wall of thyroid gland against sternoclei domastoid muscle; oval, 2x2cm, tender- Neck U/S 12/29/23: few scattered enlarged, benign nodes- 12/25/23: no change Obstructiv e sleep apnea syndrome 52708374 G47.33 Nasal congestion 8993493 0 R09.81 - chronic since childhood Nasal sinu s pressure sensation 1714913629 J34.89 Olfactory hallucinations 87853519 R44.2 - onset 2020 Hypertroph y of nasal turbinates 16992168 J34.3 Chronic sinusitis 172324 00 J32.9 Rhinitis medicamentosa 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 J31.0 T48.5X5A [id number] ABEL BALLARD, [facility] [address] [place] [address] 01/13/2025 15:22:20 01/13/2025 16:16:15 Sensorineural hearing loss of bilateral ears 305563093 H90.3 Bilateral tinnitus 62968 89584 102 H93.13 Health Concerns Section Related Observation LastModified by Organization Detai ls LastModified Time None Recorded Concern Status LastModified by Organization Details LastModified Time None Recorded Advance Directives Directive None Recorded Payers Insurance Date Sequence Insurance Name Policy Number Policy Fitzgerald Covered Member ID Fitzgerald Member ID Guarantor Name 01/23/2025 1 [facility] (PP[facility] [id number] Eliecer Felix [id number] Eliecer Felix Notes Date Note Type Note Provider Name and Address Organization Details Recorded Time 12/25/2023 text/html Eliecer Felix is seen today for annual follow up of SNHL and tinnitus. He says his hearing has been stable, no changes noted. He denies pain, discharge, or infections. He wears protection at work. He has not noticed any new lumps or masses of the neck, or change to the enlarged lymph node of the right neck. RUSS ORELLANA, CHILD DAYCARE WORKER [address] [place], [address], [facility] 12/25/2023 16:01:56 07/24/2024 text/html Mr. Felix is a 49 year old male with about 6 months of posterior neck pain. He describes pain in his posterior neck that radiates up to the base of his skull causing headaches. He has pain in to the right greater than left shoulder. He denies any pain radiating down his arm. No numbness or tingling in his hands.He has seen 2 chiropractors without improvement after a month and a half of treatments. He most recently saw Channing Herrera. He takes meloxicam for plantar fasciitis but has not found this to help his neck pain. He does get some improvement with applying heat to his neck. His pain is worse with activity. JAVIER CALDWELL PA-C [address] [place], [address], [facility] 07/24/2024 15:22:19 01/13/2025 text/html Eliecer Felix is seen today for annual follow up of SNHL and tinnitus. He says his hearing has been stable, no changes noted. He denies pain, discharge, or infections. He wears protection at work. Mr. Felix reports issues his sinuses and congestion since childhood. He experiences chronic and daily nasal congestion, stuffiness, and sinus pressure for as long as he can remember. He will get frontal headaches intermittently. He does not typically have drainage he can blow out but if he does, it is green. He also frequently smells cigarette smoke since 2019. He uses saline rinse a couple times a week for several years, as well as Afrin nightly for many years. He requires the Afrin nightly because he cannot breath through his CPAP mask without it. He has not had a sinus CT scan. He has been on one round of antibiotics and steroids in the last year for his sinuses. RUSS ORELLANA, CHILD DAYCARE WORKER [address] [place], [address], [facility] 01/13/2025 16:09:50
--- OUTSIDE RECORDS SUMMARY | 2025-01-23 15:19 | XMS_ITS | Continuity of Care Document ---
Author Organization [facility], [place] [address] Address [address] [place] [address] Care Team Providers Care Tax Representative Name Role Phone LILA VEGA Primary Care Provider [phone] Assessment No assessment recorded. Plan of Treatment Reminders Order Date Submit Date Provider Last Modified By Organization Details Last Modified Time Details Appointments RECHECK 2024 08:10A M TIERA ALLEN MD Not available Not available Not available RECHECK 2024 03:00P M RUSS ORELLANA APRN Not available Not available Not available Lab None recorded . Referral None recorded . Procedures None recorded . Surgeries None recorded . Imaging None recorded . Medication Orders None recorded . Patient TargetsNo targets recorded. Patient InstructionsNo instructions recorded. Reason for Referral None Reported. Results Created Date Observation Date Name Description Value Unit Range Abnormal Flag Note LastModifiedBy Organization Detail LastModifiedTime 01/14/20 25 01/13/2025 audio gram No observ ation record ed. BARCODE Not Available 2024 16:31:32 Result Notes None recorded. Problems No Known Problems Procedures Surgical History Date Name Laterality Status Provider Name and Address Organization Details Recorded Time 5 Audiogram completed KRISTY RG [address] [place], [address], [facility] 01/13/2025 15:38:34 4 Audiogram completed KRISTY PORTER, CCA-A [address] [place], [address], [facility] 12/25/2023 15:11:21 06/202 3 Tympanogram completed JESSIE ROSARIO, MS [address] [place], [address], [facility] 12/21/2022 15:45:41 3 Audiogram completed JESSIE ROSARIO, MS [address] [place], [address], [facility] 12/21/2022 15:45:40 vasectomy completed Melly Torres [facility] 12/21/2022 15:00:06 Other completed Melly Brian [facility] 12/21/2022 15:00:17 Imaging Results None recorded. Procedure [...] t Available Vitals Date Recorded Body height Body mass index (BMI) Body weight Body temperature Heart rate Systolic And Diastolic Provider Name and Address Organization Details Last Updated DateTime 180.34 cm 37.7 kg/m2 760857. 94 g 97.3 [degF] 87 /min 177/105 mm[Hg] Kimberly Barakat [facility] 15:14:11 Social History Question Answer Notes LastModified by Organizat ion Details LastModified Time Tobacco Smoking Status [facility]/2022 15:00:39 What Was The Date Of Your Most Recent Tobacco Screening? 01/23/2025 [email or web address] Information not available 01/23/2025 Sex: Male Functional Status Question Answer Note LastModified by Organization D etails LastModified Time What is your level of alcohol consumption? None [email or web address] Information not available 12/21/2022 Mental Status None recorded. Family History Relationship Description Onset Age of this Age Resolved Age Notes LastModified by Organization Details LastModified Time Mother Disorder of thyroid gland [email or web address] Not available 15:00:46 Mother Complication of anesthesia [email or web address] Not available 15:00:52 Medical History Condition Response TENS Unit for current problem Y Massage Therapy for current problem Y Traction for current problem N Gout N Other N Kidney Stones N Hyperthyroidism N Heart Arrhythmia N Narcotic Pain Medication for current pro blem N Emphysema N Esophagus/swallowing troubles Y Glaucoma N Lung Disease N COPD N Hypothyroidism N Depression N Injections for current problem N Anesthesia Complications Y Deep Vein Thrombosis N Anxiety Disorder N Hearing Loss Y Arthritis N Acid Reflux (GERD) Y Cancer N Stroke N Hoarseness N Alcohol Overuse/Alcohol Abuse N High Cholesterol N Liver Disease N Snoring problems Y Headaches Y Fibromyalgia N Dialysis N Kidney Disease N Allergies/Hayfever Y Heart Problems N Neuro-modulating Drugs for current probl em N Mental handicap N Ear or Hearing Problems Y Black Lung N Gallbladder Disease N Migraines Y Thyroid Problems N Steroid Pack for current problem N NSAID Use N Goiter N Osteoporosis/Osteopenia N Anemia N Immune System Disorder N Chest Pain N Stomach trouble N Heart Attack ([place]) N Ulcers N Mental Illness N Diabetes Y Rheumatic Fever N Bleeding Disorder N Tuberculosis N Genetic Disorder N AIDS/HIV N Hyperlipidemia N Chiropractor treatment for current probl em Y Kidney Failure N Asthma N Ultrasound Treatment for current problem N Epilepsy/Seizures N Sleep Apnea Y Sleep Disorder Y Thyroid Disorder N Hepatitis N Physical Therapy Treatments for current problem N Heart Disease N Pulmonary Embolism N Hypertension N Past Encounters Encounter ID Performer Location Encounter Start Date Encounter Closed Date Diagnosis/Indication Diagnosis SNOMED-CT Code Diagnosis ICD10 Code Diagnosis Note [id number] RUSS ORELLANA, KILN DOOR BUILDER [place] [address] [place] [address] 01/13/2025 15:09:08 01/14/2025 04:25:59 Bilateral tinnitus 3964928369 102 H93.13 - secondary to SNHL Sensorineu ral hearing loss of bilateral ears 731164343 H90.3 Cervical lymphadenopathy 314472602 R59.0 - 12/21/22: right lateral wall of thyroid gland against sternoclei domastoid muscle; oval, 2x2cm, tender- Neck U/S 12/29/23: few scattered enlarged, benign nodes- 12/25/23: no change Obstructiv e sleep apnea syndrome 55193822 G47.33 Nasal congestion 9471304 0 R09.81 - chronic since childhood Nasal sinu s pressure sensation 9610255011 J34.89 Olfactory hallucinations 42080193 R44.2 - onset 2020 Hypertroph y of nasal turbinates 52829347 J34.3 Chronic sinusitis 738218 00 J32.9 Rhinitis medicamentosa 19091975 J31.0 T48.5X5A [id number] ABEL BALLARD, KRISTY B[facility] [place] [address] 01/13/2025 15:22:20 01/13/2025 16:16:15 Sensorineural hearing loss of bilateral ears 741903483 H90.3 Bilateral tinnitus 25846 52302 102 H93.13 Health Concerns Section Related Observation LastModified by Organization Detai ls LastModified Time None Recorded Concern Status LastModified by Organization Details LastModified Time None Recorded Payers Encounter Date Sequence Insurance Name Policy Number Policy Fitzgerald Covered Member ID Fitzgerald Member ID Guarantor Name 01/13/2025 1 [place] [id number] Eliecer Felix [id number] Eliecer Felix Notes Date Note Type Note Provider Name and Address Organization Details Recorded Time 01/13/2025 text/html Eliecer Felix is seen today [...] last year for his sinuses. RUSS ORELLANA, KILN DOOR BUILDER [address] [facility] [place], [address], [facility] 01/13/2025 16:09:50
--- OUTSIDE RECORDS SUMMARY | 2025-01-23 15:20 | XMS_ITS | Clinical Summary ---
Author Organization [facility] Address [address] [place] [address] Phone [email or web address] Care Team Providers Care Generator Mechanic Name Role Phone Yvan Hammond MD Primary Care Provider [phone] Allergies No known active allergies Medications Farxiga [...] Immunization Administration Dates Next Due Covid-19 (Moderna [place], 12yrs+) (CVX-207) 2020,10/07/2020 Social History Tobacco Use [...] - season) 2024 11/04/2020, 10/07/2020 Influenza Immunization (#1) 03/10/202504/09, 04/08/2020 HIB Immunization Aged Out No longer [...] to complete this topic Insurance JULI ADAMS [id number] OPT OUT NO COPAY NB Care Teams Generator Mechanic Relationship Specialty Start Date End Date Yvan Hammond MD [address] [place] [address] JULI ADAMS [id number] PCP - General Insurance Defense Paralegal 11/08/21
--- OUTSIDE RECORDS SUMMARY | 2025-01-23 15:20 | XMS_ITS | Continuity of Care Document ---
Author Organization [facility] [place] [address] Address [address] [place] [address] Care Team Providers Care Sap Bpc Developer Name Role Phone LILA VEGA Primary Care Provider [phone] Assessment No assessment recorded. Plan of Treatment [...] predniso ne 10 mg tablet [address] [facility], [address] [place], [address], 01/23/2025 08:00:57 cefdinir 300 mg capsule [address] [facility], [address] [place] [address], [place], [address], 01/23/2025 07:59:55 fluticas one propiona te 50 mcg/actu ation nasal spray,vazquez spension 2024 025 [facility], [address] [place] [address], [place], [address], 01/13/2025 16:08:55 Patient TargetsNo targets recorded. Patient Instructions Encounter Date Encounter Id Patient Instructions Last Modified By Organization Details Last Modified Time 01/13/2025 [id number] 1. Audiometry obtained and results reviewed with [...] for further evaluation JULI ENT MD [email or web address] Not available 01/13/2025 16:08:37 Reason for Referral None Reported. Results Created Date Observation Date Name Description Value Unit Range Abnormal Flag Note LastModifiedBy Organization Detail LastModifiedTime 01/14/2001/13/2025 audio gram No observ ation record ed. BARCODE Not Available 2024 16:31:32 Result Notes None recorded. Problems No Known Problems Procedures Surgical History Date Name Laterality Status Provider Name and Address Organization Details Recorded Time 5 Audiogram completed KRISTY RG [address] [place], [address], [facility] 01/13/2025 15:38:34 4 Audiogram completed KRISTY PORTER, CCA-A [address] [place], [address], [facility] 12/25/2023 15:11:21 3 Tympanogram completed JESSIE ROSARIO, MS [address] [place], [address], [facility] 12/21/2022 15:45:41 3 Audiogram completed JESSIE GONZALES MARLENE, MS [address] [place], [address], [facility] 12/21/2022 15:45:40 vasectomy completed Melly Torres [facility] 12/21/2022 15:00:06 Other completed Melly Torres [facility] 12/21/2022 15:00:17 Imaging Results None recorded. [...] Last Updated DateTime 180.34 cm 37.7 kg/m2 560255. 94 g 97.3 [degF] 87 /min 177/105 mm[Hg] Kimberly Barakat [facility] 15:14:11 Social History Question Answer Notes LastModified by Organizat ion Details LastModified Time Tobacco Smoking Status [facility]2022 15:00:39 What Was The Date Of Your Most Recent Tobacco Screening? 01/23/2025 [email or web address] Information not available 01/23/2025 Sex: Male Functional Status Question Answer Note LastModified by Organization D etails LastModified Time What is your level of alcohol consumption? None [email or web address] Information not available 12/21/2022 Mental Status None recorded. Family History Relationship Description Onset Age of this Age Resolved Age Notes LastModified by Organization Details LastModified Time Mother Disorder of thyroid gland [email or web address] Not available 15:00:46 Mother Complication of anesthesia [email or web address] Not available 15:00:52 Medical History Condition Response TENS Unit for current problem Y Traction for current problem N Massage Therapy for current problem Y Other N Gout N Kidney Stones N Hyperthyroidism N Heart Arrhythmia N Narcotic Pain Medication for current pro blem N Emphysema N Esophagus/swallowing troubles Y COPD N Depression N Lung Disease N Glaucoma N Hypothyroidism N Injections for current problem N Anesthesia Complications Y Deep Vein Thrombosis N Anxiety Disorder N Hearing Loss Y Arthritis N Acid Reflux (GERD) Y Cancer N Stroke N Hoarseness N Alcohol Overuse/Alcohol Abuse N High Cholesterol N Liver Disease N Snoring problems Y Dialysis N Headaches Y Fibromyalgia N Kidney Disease N Allergies/Hayfever Y Heart [...] Stomach trouble N Ulcers N Heart Attack ([place]) N Mental Illness N Diabetes Y Rheumatic [...] SNOMED-CT Code Diagnosis ICD10 Code Diagnosis Note [id number] RUSS ORELLANA APRN [place] [address] [facility] [place] [address] 01/13/2025 15:09:08 01/14/2025 04:25:59 Bilateral tinnitus 9338227187 102 H93.13 - secondary to SNHL Sensorineu ral hearing loss of bilateral ears 500729888 H90.3 Cervical lymphadenopathy 800291009 R59.0 - 12/21/22: right lateral wall of thyroid gland against sternoclei domastoid muscle; oval, 2x2cm, tender- Neck U/S 12/29/23: few scattered enlarged, benign nodes- 12/25/23: no change Obstructiv e sleep apnea syndrome 60477073 G47.33 Nasal congestion 2872959 0 R09.81 - chronic since childhood Nasal sinu s pressure sensation 6343989042 J34.89 Olfactory hallucinations 07751207 R44.2 - onset 2020 Hypertroph y of nasal turbinates 19089239 J34.3 Chronic sinusitis 708463 00 J32.9 Rhinitis medicamentosa 11540181 J31.0 T48.5X5A [id number] KRISTY PATINO [place] [address] [place] [address] 01/13/2025 15:22:20 01/13/2025 16:16:15 Sensorineural hearing loss of bilateral ears 732714933 H90.3 Bilateral tinnitus 78944 96958 102 H93.13 Health Concerns Section Related Observation LastModified by Organization Detai ls LastModified Time None Recorded Concern Status LastModified by Organization Details LastModified Time None Recorded Payers Encounter Date Sequence Insurance Name Policy Number Policy Fitzgerald Covered Member ID Fitzgerald Member ID Guarantor Name 01/13/2025 1 [place] [id number] Eliecer Felix [id number] Eliecer Felix Notes Date Note Type [...] last year for his sinuses. RUSS ORELLANA, LIFTER DRIVER [address] [place], [address], [facility] 01/13/2025 16:09:50
--- OUTSIDE RECORDS SUMMARY | 2025-01-23 15:20 | XMS_ITS | Continuity of Care Document ---
Author Organization [facility], [address] Address [address] [place] [address] Care Team Providers Care Business And Financial Counsel Name Role Phone LILA VEGA Primary Care Provider Assessment No assessment recorded. Plan of Treatment Reminders Order Date Submit Date Provider Last Modified By Organization Details Last Modified Time Details Appointments RECHECK 2024 08:10A M TIERA ALLEN MD Not available Not available Not available RECHECK 2024 03:00P Joelle ORELLANA SHINGLE WEAVER Not available Not available Not available Lab None recorded . Referral None recorded . Procedures None recorded . Surgeries None recorded . Imaging None recorded . Medication Orders None recorded . Patient TargetsNo targets recorded. Patient Instructions Encounter Date Encounter Id Patient Instructions Last Modified By Organization Details Last Modified Time 01/23/2025 [id number] 1. Will request CT from [facility]. Pt will plan on picking up the disc from [facility] and bringing it to us 2. Discussed close reduction of nasal fracture but would likely not be a good surgical candidate due to his recent PR. Would recommend waiting until his cardiac issues are more under control and then could consider rhinoplasty. Also discussed closed reduction under local. 3. F/u prn, f/u as scheduled w/ Russ Orellana on 02/18/25 [email or web address] Not available 01/23/2025 08:33:26 Patient worked i n today for nasal bone fracture. He had a massive heart attack about 4 to 5 days ago and fell during this and broke his nose. He ended up having 2 stents placed and states he had 100% occlusion of his LAD. On exam he has a clear inward displaced right nasal bone fracture and outward displaced left. He interestingly states he is actually breathing better through his nose now than he was prior to trauma. He has been evaluated by our nurse practitioners getting set up for sinus CT for possible nasal polyps. While generally speaking he would be indicated for a closed reduction obviously given his heart attack a couple days ago and recent stent placement he is not a good anesthesia candidate. I offered to try to reset it in the office under local numbing. Ultimately he declined and states he wants to just have it reset, get his heart better, and then if he ever does need it fixed in the future [email or web address] back to it. We did discuss that fixing it in the future would involve a functional rhinoplasty with osteotomies which she understands. [email or web address] Not available 01/23/2025 08:36:56 Reason for Referral None Reported. Results Created [...] Time 5 Audiogram completed KRISTY RG [address] [place], [address], [facility] 01/13/2025 15:38:34 4 Audiogram completed KRISTY PORTER, CCA-A [address] [place], [address], [facility] 12/25/2023 15:11:21 3 Tympanogram completed JESSIE ROSARIO, MS [address] [place], [address], [facility] 12/21/2022 15:45:41 3 Audiogram completed JESSIE ROSARIO, MS [address] [place], [address], [facility] 12/21/2022 15:45:40 vasectomy completed Melly Torres [facility] 12/21/2022 15:00:06 Other completed Melly Torres [facility] 12/21/2022 15:00:17 Imaging Results None recorded. Procedure [...] Updated DateTime 01/23/2025 180.34 cm 37.7 kg/m2 929000.9 4 g 74 /min 101/60 mm[Hg] Sana [facility] 01/23/2025 08:03:48 Social History Question Answer Notes LastModified by Organizat ion Details LastModified Time Tobacco Smoking Status [facility] 15:00:39 What Was The Date Of Your Most Recent Tobacco Screening? 01/23/2025 [email or web address] Information not available 01/23/2025 Sex: Male Functional Status Question Answer Note LastModified by Organization D etails LastModified Time What is your level of alcohol consumption? None [email or web address] Information not available 12/21/2022 Mental Status None recorded. Family History Relationship Description Onset Age of this Age Resolved Age Notes LastModified by Organization Details LastModified Time Mother Disorder of thyroid gland [email or web address] Not available 15:00:46 Mother Complication of anesthesia [email or web address] Not available 15:00:52 Medical History Condition Response [...] Pain N Stomach trouble N Heart Attack (PR) N Ulcers N Mental Illness N Diabetes [...] SNOMED-CT Code Diagnosis ICD10 Code Diagnosis Note [id number] RUSS ORELLANA, SHINGLE WEAVER [place] [address] [facility] [place] [address] 01/13/2025 15:09:08 01/14/2025 04:25:59 Bilateral tinnitus 5179138373 102 H93.13 - secondary to SNHL Sensorineu ral hearing loss of bilateral ears 002929061 H90.3 Cervical lymphadenopathy 872476248 R59.0 - 12/21/22: right lateral wall of thyroid gland against sternoclei domastoid muscle; oval, 2x2cm, tender- Neck U/S 12/29/23: few scattered enlarged, benign nodes- 12/25/23: no change Obstructiv e sleep apnea syndrome 78986671 G47.33 Nasal congestion 6143788 0 R09.81 - chronic since childhood Nasal sinu s pressure sensation 1312788167 J34.89 Olfactory hallucinations 42333376 R44.2 - onset 2020 Hypertroph y of nasal turbinates 79542372 J34.3 Chronic sinusitis 062422 00 J32.9 Rhinitis medicamentosa 32549436 J31.0 T48.5X5A [id number] ABEL BALLARD, KRISTY [place] [address] [place] [address] 01/13/2025 15:22:20 01/13/2025 16:16:15 Sensorineural hearing loss of bilateral ears 587513079 H90.3 Bilateral tinnitus 11706 85821 102 H93.13 [id number] TIERA ALLEN MD ENT [place] [address] [place] [address] 01/23/2025 07:44:28 01/23/2025 08:37:28 Closed fracture of nasal bones 29247421 S02.2XXA Mechanism of injury: face-plant ed onto concrete when having a heart attack on 01/20/25CT performed at [facility] Chronic sinusitis 663980 00 J32.9 being seen by Russ Orellana APRN Myocardial infarction 22 232346 I21.9 01/20/25. Due to this, would not be a good candidate for closed reduction under general anesthesia at this time. Deviated nasal septum 12 1472758 J34.2 Left Health Concerns Section Related Observation LastModified by Organization Detai ls LastModified Time None Recorded Concern Status LastModified by Organization Details LastModified Time None Recorded Payers Encounter Date Sequence Insurance Name Policy Number Policy Fitzgerald Covered Member ID Fitzgerald Member ID Guarantor Name 01/23/2025 1 [place] [id number] Eliecer Felix [id number] 12 Eliecer Felix Notes Date Note Type Note Provider Name and Address Organization Details Recorded Time 5 text/html Chief Complaint: Nasal fractureTimin01/20/25Duration: intermittentLocation:Sev erity:Quality:Context: CHEL: face-planted into concrete at least once when he had a PR - two stents were placed, is on ticagrelorModifying Factors: [facility] signs and symptoms: nasal congestion, facial pain/pressure, PND, rhinorrhea, headaches, epistaxis (1 1/2 days). previous provider believe he may have polyps in his nose. TIERA ALLEN MD [address] [place], [address], [facility] 01/23/2025 08:37:26
--- NOTE | 2025-01-23 15:33 | A.OFFVIS_ITS ---
[facility] Disclaimer: The information contained in this section may have been updated after the patient was seen, as this information can be updated by other users. 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 He does rate his pain today a 4 out of 10 however has had a lot that is gone on this week. Patient states that he did have improvement with this ablation however currently it is hard to gauge how well it is still working due to just having a heart attack on Monday. Patient was in [place] at a [employer] class when he ended up passing out and breaking his nose. Patient was transported to the hospital there at [place] and was experiencing symptoms of reflux. They ended up doing an EKG that did show abnormal findings and ultimately transferred him to [facility] where he had 2 stents placed. Patient is now on blood thinners for at least 6 months to a year. Patient did [facility] and that they are having to let his nose heal on its own due to the blood thinner and high risk. Patient does however state he feels like he breathes better now than he did before. Patient denies any other changes. He is prescribed compounded cream from our office and does state that he needs refills. His Fidencio has been reviewed and is appropriate. Review of Systems: General: No recent weight changes, no fever, no sleep disturbances Respiratory: No cough, no shortness of air, no recurring pulmonary infections Cardiovascular/peripheral vascular: No chest pain, no palpitations, no edema, no shortness of breath Gastrointestinal: No new onset incontinence, normal bowel movements reported Genitourinary: No new onset incontinence Musculoskeletal: Neck pain Psychiatric: [Normal mood/affect] Neurological: [Denies weakness in extremities], [denies balance issues] Pain at rest (0-10 scale): 4 Objective Objective:: Physical Exam: General: Alert and oriented x3, no acute distress, pleasant and cooperative Lungs: Respirations even and unlabored, symmetrical chest expansion Eyes: PERRL Musculoskeletal: Flexion and extension of cervical [spine] somewhat guarded secondary to pain, [antalgic gait noted] Neurological: Speech clear, no gross sensory deficit Has patient had previous pain injection?: Yes Percent improvement in pain since last injection: Significant Conservative treatment options previously tried: Home exercise plan Length of treatment: Longer than 12 weeks Meds Home Medications and Allergies Home Medications ?Medication ?Instructions ?Recorded ?Confirmed ?Type omeprazole 40 mg capsule,delayed 40 mg PO DAILY Reflux /Acid reflux 04/06/21 12/31/24 History release testosterone cypionate 200 mg/mL 200 mg SQ DIRECTED SUPPLIMENT 11/07/23 12/31/24 History intramuscular oil tirzepatide 5 mg/0.5 mL 5 mg SQ DIRECTED 05/21/24 12/31/24 History subcutaneous pen injector (Mounjaro) diclofenac sodium 1 % topical gel 4 g topical QID PRN pain 30 days 09/30/24 12/31/24 Rx (Voltaren Arthritis Pain) #100 grams New Prescriptions to Start Prescriptions: Allergies Allergy/AdvReac Type Severity Reaction Status Date / Time No Known Allergies Allergy Verified 12/16/24 14:47 Assessment and Plan *Assessment and plan (1) Degenerative disc disease, cervical: Status: Acute Category: Medical Code(s): M50.30 - Other cervical disc degeneration, unspecified cervical region (2) Cervical spondylosis: Status: Acute Category: Medical Code(s): M47.812 - Spondylosis without myelopathy or radiculopathy, cervical region Plan I will refill the patient's compounded cream and follow back up with him in 6 weeks. Patient agrees with this plan of care. Patient has been instructed to contact the clinic with any concerns before the next appointment. Dr. Landis has reviewed this note and agrees with this plan of care. This note was dictated using voice recognition software and make contain errors or omissions. All injections are used with Lidocaine, Bupivacaine and dexamethasone. Occasionally urine drug screen is needed to verify patient's compliance with our office pain contract. This is ordered based off specific treatments related to chronic pain with the potential to abuse certain medications.
[2025-01-23 15:34] VITALS: BP 121/83; PULSE 83; RESP 18; O2SAT 95; BMI 36.5
== END 2025-01-23 23:59 | disposition home or self-care (01) ==
LOC: SC.PAIN 14:52
PROVIDERS: PCP Family Medicine; Visit Provider Nurse Practitioner Family
DX: M50.30 Other cervical disc degeneration, unspecified cervical region (principal); M47.812 Spondylosis without myelopathy or radiculopathy, cervical region
CPT/HCPCS: 99212; G0463